=== PATIENT | female | born 1935 | race Caucasian/White ===

== ENCOUNTER 2018-05-12 15:01 | Inpatient (IN) ==
[2018-05-12] MEDS ORDERED: NS 1,000 ML IV ONE (16:32)
--- NOTE | 2018-05-12 16:48 | Diag Imaging Result Doc PS360 ---
EXAM: CHEST-1 VIEW 05/12/2018 HISTORY: sepsis TECHNIQUE: AP portable at 1635 COMMENT: The inspiration is less optimal than on 01/11/2018. There is a large calcified right tracheobronchial node. There is actually somewhat less platelike atelectasis over the right midlung field than on the previous study. IMPRESSION: No evidence of acute disease. Electronically signed by Moustapha Devlin 05/12/2018 4:46 PM
[2018-05-12 16:53] LABS: BASO# 0.01 X1000 (0.0-0.2); BASO% 0.1 % (0.0-0.8); EOS# 0.01 X1000 (0.0-0.7); EOS% 0.1 % (0.0-10.0); HEMATOCRIT 41.1 % (37.0-47.0); HEMOGLOBIN 13.8 g/dL (12.0-16.0); IMM GRAN# 0.02 X1000 (0.0-0.04); IMM GRAN% 0.2 % (0.0-0.5); LYMPH# 0.74 X1000 (1.2-3.4); LYMPH% 8.4 % (20.5-51.1); MCH 32.4 PG (27-31); MCHC 33.6 g/dL (33-37); MCV 96.5 FL (81-99); MONO# 0.36 X1000 (0.11-0.59); MONO% 4.1 % (1.7-9.3); NEUT# 7.65 X1000 (1.4-6.5); NEUT% 87.1 % (42.2-75.2); PLT 337 X1000 (130-400); RBC 4.26 XMIL (4.2-5.4); RDW 11.3 % (11.5-14.5); WBC 8.79 X1000 (4.8-10.8)
[2018-05-12 17:00] LABS: URINE SOURCE CATH
[2018-05-12 17:04] LABS: ALB/GLOB RATIO 2.1; ALBUMIN 4.8 g/dL (3.5-5.0); CREATININE 0.9 mg/dL (0.5-0.9); MAGNESIUM 1.6 mg/dL (1.5-2.7); PHOSPHORUS 3.6 mg/dL (2.7-4.5); POTASSIUM 4.1 mmol/L (3.5-5.1); TOTAL BILIRUBIN 0.27 mg/dL (0.20-1.00); TOTAL PROTEIN 7.1 g/dL (6.3-8.3)
[2018-05-12 17:11] LABS: INR 0.84; PROTIME 12.2 Seconds (11.0-16.0)
[2018-05-12 17:12] LABS: PTT 27.3 Seconds (22.3-41.8)
[2018-05-12 17:16] LABS: BILIRUBIN URINE NEGATIVE (NEGATIVE); BLOOD URINE MODERATE (NEGATIVE); COLOR ORANGE; GLUCOSE URINE NEGATIVE (NEGATIVE); KETONE URINE >150 mg/dL (NEGATIVE); LEUKOCYTES URINE LARGE (NEGATIVE); NITRITE URINE NEGATIVE (NEGATIVE); PH URINE 5.5; PROTEIN URINE 200 mg/dL (NEGATIVE); SP GRAVITY URINE 1.009; TURBIDITY URINE TURBID (CLEAR); UROBILINOGEN URINE NORMAL (NORMAL)
[2018-05-12 17:19] LABS: UR EPITHELIAL CELLS <10 /HPF (<10); URINE BACTERIA NEGATIVE /HPF; URINE RBC TNTC /HPF (<10); URINE WBC TNTC /HPF (<10)
[2018-05-12] MEDS ORDERED: ROCEPHIN 1 GM in NS 50 ML IV ONE (17:20)
[2018-05-12 17:29] LABS: URINE CASTS NONE SEEN; URINE CRYSTALS NONE SEEN; URINE YEAST NONE SEEN
--- NOTE | 2018-05-12 18:43 | PROVIDER DOCUMENTATION ---
This chart was entered by Magali Orr Scribe, acting as scribe for Whitney Astorga MD. HPI-General Adult - General Chief Complaint: Weakness Stated Complaint: WEAKNESS/UTI Time Seen by Provider: 05/12/18 15:31 Source: patient Allergies/Adverse Reactions: Patient Allergies Allergy/AdvReac Type Severity Reaction Status Date / Time meperidine HCl * AdvReac Intermediate NAUSEA/VOMI Verified 05/12/18 16:32 [From Demerol] TING morphine AdvReac Intermediate NAUSEA Verified 05/12/18 16:32 hydromorphone HCl * AdvReac FATIGUE Verified 05/12/18 16:32 [From Dilaudid] Home Medications: Home Medication List Medication Instructions Recorded Confirmed Last Taken Type Aspirin 81 mg PO DAILY 05/11/12 01/11/18 1 Day Ago History ~12/03/17 81mg Sucralfate [Carafate] 1 gm PO BID 05/11/12 01/11/18 1 Day Ago History ~12/03/17 1gm Metoprolol [Lopressor] 12.5 mg PO Q12H #60 tablet 05/14/12 01/11/18 1 Day Ago Rx ~12/03/17 12.5 PRAVAstatin [Pravachol] 10 mg PO DAILY #30 tablet 05/14/12 01/11/18 1 Day Ago Rx ~12/03/17 10mg Iron 27 mg PO DAILY 05/16/12 01/11/18 1 Day Ago History ~12/03/17 27mg Lorazepam [Ativan] 0.5 mg PO 4XDAY 05/16/12 01/11/18 1 Day Ago History ~12/03/17 0.5mg Multivitamins/Minerals [Centrum 1 each PO DAILY 05/16/12 01/11/18 1 Day Ago History Tablet] ~12/03/17 1 each Omega3/Dha/Epa/Fish Oil/Vit D3 1 each PO TID 05/16/12 01/11/18 1 Day Ago History [Fish Oil + Vitamin D-3 Softgel] ~12/03/17 300mg Hydrocodone/APAP 7.5 mg/325 mg 0.5 - 1 each PO Q6H PRN PRN #0 06/10/12 01/11/18 1 Day Ago Rx [[place]-7.5] tablet ~12/03/17 7.5mg Albuterol [Albuterol Neb] 2.5 mg INH Q4H PRN PRN 12/24/12 01/11/18 1 Day Ago History ~12/03/17 2.5mg Omeprazole [Prilosec] 40 mg PO DAILY 12/24/12 01/11/18 1 Day Ago History ~12/03/17 40mg Docusate Sodium [Colace] 100 mg PO DAILY 09/10/13 01/11/18 1 Day Ago History ~12/03/17 100mg Cholecalciferol (Vitamin D3) 2,000 units PO DAILY 08/22/14 01/11/18 1 Week Ago History [Vitamin D3] ~11/27/17 2000units Cyanocobalamin (Vitamin B-12) 1 tab PO DAILY 11/02/16 01/11/18 1 Day Ago History [Vitamin B12] ~12/03/17 1 tab Ibuprofen [Advil] 400 mg PO PRN PRN 11/02/16 01/11/18 3 Days Ago History ~12/01/17 1 cap Nutritional Supplement [Ensure] 1 dose PO PRN PRN 11/02/16 01/11/18 1 Day Ago History ~12/03/17 1 dose Acetaminophen [Tylenol] 650 mg PO Q6H PRN PRN #30 tab 12/07/17 01/11/18 Unknown Rx Famotidine [Pepcid] 20 mg PO QHS #50 tab 12/07/17 01/11/18 Unknown Rx Bupropion [Wellbutrin] 150 mg PO BID 01/11/18 01/11/18 Unknown History Diltiazem HCl [Cardizem Cd] 240 mg PO QAM 01/11/18 01/11/18 Unknown History Gabapentin [Neurontin] 300 mg PO QHS 01/11/18 01/11/18 Unknown History Levofloxacin [Levaquin] 500 mg PO DAILY #7 tab 01/13/18 Unknown Rx Nitrofurantoin [place]/Macrocryst 100 mg PO BID #10 cap 05/10/18 Unknown Rx [Macrobid] Ondansetron HCl [Zofran] 4 mg PO Q8H PRN #15 tab 05/10/18 Unknown Rx - History of Present Illness -Gen Adult Nature of Presenting Problems: 82 y/o female presents to ED with weakness and loss of appetite onset 2 days ago. Pt reports she was seen in ED and diagnosed with UTI 2 days ago. Pt is alert and oriented. Location of Pain/Injury: reports: generalized Pain Radiation: reports: no radiation Quality of Pain: reports: none Severity: reports: mild Onset/Duration: reports: 2 days ago Timing: reports: still present Context/Activities at Onset: reports: none Modifying Factors: improves with: nothing Associated Symptoms: reports: loss of appetite, weakness Similar Symptoms Previously?: No Recently seen or treated by another doctor?: Yes (ED 2 days ago) Review of Systems - Adult - REVIEW OF SYSTEMS - ADULT Constitutional: denies: chills, fever Eyes: reports: no symptoms reported Ears, Nose, Mouth & Throat: reports: no symptoms reported Cardiovascular: denies: chest pain, palpitations Respiratory: denies: cough, shortness of breath Gastrointestinal: reports: poor appetite. denies: abdominal pain, diarrhea, nausea, vomiting Genitourinary: reports: no symptoms reported Musculoskeletal: denies: back pain, joint pain Integumentary: reports: no symptoms reported Neurological: reports: other (weakness). denies: dizziness/vertigo, seizure Psychiatric: reports: no symptoms reported Endocrine: reports: no symptoms reported Hematologic/Lymphatic: reports: no symptoms reported Allergic/Immunologic: reports: no symptoms reported All Other Systems: Reviewed and Negative Past History - Adult - PAST MEDICAL HISTORY-ADULT Review of Records: reports: Old Records Reviewed, Nursing Assessment Review, Medications Reviewed Major Childhood Illnesses: reports: denies history Cardiovascular: reports: CAD, CHF, HTN, hyperlipidemia, [place] Respiratory: reports: denies history Gastrointestinal: reports: GERD Obstetrical/Gynecological: reports: denies history Genitourinary: reports: denies history Musculoskeletal: reports: arthritis (RA) Neurological: reports: CVA Psychiatric: reports: depression Endocrine/Immune: reports: denies history Other Conditions: reports: denies history, MRSA - PRIOR SURGERIES/PROCEDURES Surgical/Procedure History: reports: appendectomy, cholecystectomy, BTL, C- section, orthopedic (extremity) (L hip and L shoulder removed; bilateral UE and bilateral LE), joint replacement (hip, knee), back/neck (back) - IMMUNIZATION STATUS Childhood Immunizations: See Nurse Assessment Flu Vaccine: See Nurse Assessment - FAMILY HISTORY Family History: reviewed, not pertinent - SOCIAL HISTORY Smoking: quit greater than 1 year Substance Use: none/never Alcohol Use Frequency: never Living Situation: family Physical Exam-General - PHYSICAL EXAM-ADULT Initial Vital Signs Reviewed: Yes - CONSTITUTIONAL General Appearance: appears well, alert, no apparent distress - EYES Eyes: PERRL/EOMI, pink conjunctivae - HEAD, EARS, NOSE, MOUTH & THROAT HENMT: normocephalic/atraumatic, moist mucous membranes, normal ENT inspection - NECK Neck: non-tender, full range of motion - RESPIRATORY Respiratory: chest non-tender, lungs clear, normal breath sounds - CARDIOVASCULAR Cardiovascular: normal peripheral pulses, regular rate, rhythm - GASTROINTESTINAL (ABDOMEN) Abdominal Exam: normal bowel sounds, non tender, soft - MUSCULOSKELETAL Back Exam: normal inspection, no CVA tenderness Extremity: normal range of motion, non-tender, normal gait, other (generalized weakness; unable to move bilateral lower extremities) - SKIN Integumentary: normal color, warm/dry - NEUROLOGIC Neurologic: grossly normal - PSYCHIATRIC Psych/Mental Status: normal mood/affect, normal thought content, normal thought process, oriented x 3 Progress - PLAN OF CARE/RESULTS Progress/Plan/Lab Results: Vital Signs - 8 hr 05/12/18 15:32 05/12/18 15:49 05/12/18 15:50 Pulse Rate 113 H 113 H 113 H Respiratory Rate 23 23 22 Blood Pressure 140/101 140/101 O2 Sat by Pulse Oximetry 95 94 L 94 L 05/12/18 16:00 Pulse Rate 116 H Respiratory Rate 26 H Blood Pressure O2 Sat by Pulse Oximetry 97 Orders Category Date Time Status Cardiac Monitoring DIRECTED Care 05/12/18 16:21 Active IV Insertion ORDERED Care 05/12/18 16:21 Active Notify MD of + Sepsis Screen NOW Care 05/12/18 16:21 Active Notify Physician As Ordered Care 05/12/18 16:21 Active CHEST-1 VIEW [RAD] Stat Exams 05/12/18 16:21 Ordered BLOOD CULTURE [BLDCUL] Stat Lab 05/12/18 16:21 Uncollected CBC WITH DIFF [HEME] Stat Lab 05/12/18 16:16 Ordered CK PROFILE [SP CHEM] Stat Lab 05/12/18 16:21 Uncollected COMPREHENSIVE METABOLIC PANEL [CHEM] Stat Lab 05/12/18 16:16 Ordered LACTATE, PLASMA [CHEM] Q3H Lab 05/12/18 16:30 Uncollected LACTATE, PLASMA [CHEM] Q3H Lab 05/12/18 19:30 Uncollected LACTATE, PLASMA [CHEM] Q3H Lab 05/12/18 22:30 Uncollected MAGNESIUM [CHEM] Stat Lab 05/12/18 16:16 Ordered PHOSPHORUS [CHEM] Stat Lab 05/12/18 16:16 Ordered PROTIME WITH INR [COAG] Stat Lab 05/12/18 16:21 Uncollected PTT [COAG] Stat Lab 05/12/18 16:21 Uncollected TROPONIN T Stat Lab 05/12/18 16:21 Uncollected URINALYSIS W/POSS RFLX CULT [URINALYSIS] Stat Lab 05/12/18 16:21 Uncollected Oxygen Device Stat Oth 05/12/18 16:21 Active Laboratory Tests 05/12/18 05/12/18 05/12/18 16:15 16:15 16:15 WBC 8.79 RBC 4.26 Hgb 13.8 Hct 41.1 MCV 96.5 MCH 32.4 H MCHC 33.6 RDW Std Deviation 11.3 L Plt Count 337 MPV 9.0 Immature Gran % (Auto) 0.2 Neut % (Auto) 87.1 H Lymph % (Auto) 8.4 L Wilkinson % (Auto) 4.1 Eos % (Auto) 0.1 Baso % (Auto) 0.1 Immature Gran # (Auto) 0.02 Neut # (Auto) 7.65 H Lymph # (Auto) 0.74 L [place] # (Auto) 0.36 Eos # (Auto) 0.01 Baso # (Auto) 0.01 PT 12.2 INR 0.84 PTT (Actin FS) 27.3 Sodium 131 L Potassium 4.1 D Chloride 92 L Carbon Dioxide 16 L Anion Gap 23 BUN 23 H D Creatinine 0.9 Estimated GFR/1.73 m2 60 BUN/Creatinine Ratio 26 Glucose 123 H D Calculated Osmolality 268 Calcium 10.0 Phosphorus 3.6 Magnesium 1.6 Total Bilirubin 0.27 AST 28 ALT 15 Troponin T Total Protein 7.1 Albumin 4.8 Globulin 2.3 Albumin/Globulin Ratio 2.1 Plasma Lactate Urine Source 05/12/18 05/12/18 05/12/18 16:15 16:15 17:00 WBC RBC Hgb Hct MCV MCH MCHC RDW Std Deviation Plt Count MPV Immature Gran % (Auto) Neut % (Auto) Lymph % (Auto) Wil[place] % (Auto) Eos % (Auto) Baso % (Auto) Immature Gran # (Auto) Neut # (Auto) Lymph # (Auto) [place] # (Auto) Eos # (Auto) Baso # (Auto) PT INR PTT (Actin FS) Sodium Potassium Chloride Carbon Dioxide Anion Gap BUN Creatinine Estimated GFR/1.73 m2 BUN/Creatinine Ratio Glucose Calculated Osmolality Calcium Phosphorus Magnesium Total Bilirubin AST ALT Troponin T 0.013 Total Protein Albumin Globulin Albumin/Globulin Ratio Plasma Lactate 1.1 Urine Source CATH Result Diagrams: 05/12/18 16:15 05/12/18 16:15 - EKG 1 Time of EKG reading by physician:: 16:17 EKG Read and Signed by:: Elizabeth Najera EKG Interpretation (*Must complete 3 of following elements*): Abnormal Rate: 112 Rhythm: Sinus tach w/ occasional PVCs [place]: normal QRS: PVC's, other (possible L atrial enlargement) [place] Interval: normal ST Wave: non-specific ST changes - XRAY 1 XRAY Study: Chest Impression: Normal (COMMENT: The inspiration is less optimal than on 2017. There is a large calcified right tracheobronchial node. There is actually somewhat less platelike atelectasis over the right midlung field than on the previous study. IMPRESSION: No evidence of acute disease. Electronically signed by Moustapha Devlin 05/12/2018 4:46 PM) - CONSULTS/PCP/HOSPITALIST Notification #1 *Consult/PCP/Hospitalist*: Kassy Time Discussed: 18:43 Consult Disposition: Admit Departure - Departure Date of Disposition Decision: 05/12/18 Time of Disposition Decision: 18:41 DIAGNOSIS: Generalized weakness, Sepsis, Chronic hyponatremia Disposition: ADMITTED INPATIENT 09 Certified Medical Emergency: Emergent Condition: Stable Additional Freetext Instructions: ED Follow Up Instructions: You have been treated by a care provider in the Emergency Department. These instructions are being provided to you so you can have an understanding of how to care for yourself upon discharge. Upon discharge from the Emergency Department, you are responsible for making arrangements for follow-up care by a physician of your choice. Take all prescribed medications as directed. Return to the Emergency Department immediately for any new or worsening symptoms. You may call the Physician Referral phone number at [phone] to obtain a list of Physicians who are taking new patients. Referrals and Follow-Ups: Jose De Jesus Mccormack MD [Primary Care Provider] - Call for Appoint. 1-2days - Critical Care Note This patient required my direct & personal management of CC.: No Attestation - Physician/ CHRIS Attestation Patient care was provided by Advanced Practice Provider:: No The physician spent face to face time with patient:: Yes Advanced Practice Provider documentation review:: Supervising physician onsite and consulted in the evaluation and care of this patient. The physician did have a face to face encounter with the patient. This chart was documented by the indicated scribe, (Magali Orr, [place]) and accurately reflects the services I performed and decisions made by me, Whitney Astorga MD, as attested by the provider's signature.
[2018-05-12] MEDS ORDERED: ZOFRAN IV ONE (19:06)
[2018-05-12] MEDS ORDERED: D5 NS 1,000 ML IV ONE (20:07)
[2018-05-12] MEDS ORDERED: NEURONTIN PO SCH (21:00)
[2018-05-12] MEDS: PROTONIX IV SCH (21:00)
[2018-05-12] MEDS: HEPARIN SUBQ SCH (21:05)
[2018-05-12] MEDS: ATIVAN PO SCH (21:05)
[2018-05-12] MEDS: TYLENOL PO PRN (21:05)
[2018-05-12] MEDS: CARAFATE PO SCH (23:34)
[2018-05-13] MEDS: LOPRESSOR PO SCH ×3 (01:50→22:26)
--- NOTE | 2018-05-13 03:17 | HISTORY AND PHYSICAL ---
CHIEF COMPLAINT: Generalized weakness, possible urinary tract infection. No family members at the bedside. HISTORY OF PRESENT ILLNESS: An 82-year-old female, who is bed-bound secondary to multiple orthopedic problems, with a problem at the hip joints and knees. Past medical history of coronary artery disease, spinal stenosis, with chronic pain, hypertension, previous CVA, depression. Apparently, she is living with the , but nobody is at the bedside at this moment. The patient is a poor historian. She is not quite sure why she is in the emergency department, but she states that she has some burning sensation while she is urinating, generalized weakness, and poor appetite. She looks dehydrated, and she has been getting fluids through her IV. She denies any chest pain or shortness of breath. No hematemesis, no hematochezia or melena. As per the patient, she is not having nausea or vomiting, but like I said, she has dysuria. Apparently, she came to the emergency department a couple days ago, and she was diagnosed with a urinary tract infection. The urine culture from 05/10/2018 is negative. I will get a new urine culture, and also a blood culture. In the emergency department, she was found to be tachycardic, mostly in the 110s. Laboratory showed hyponatremia, hypochloremia, elevated anion gap, and elevated a little bit of the BUN, but creatinine within normal limits. Urinalysis showed WBCs and RBCs too numerous to count. No nitrates or bacteria. This patient received a dose of ceftriaxone, and also she received some fluids. Since this patient has been having multiple urinary tract infections, I will ask for a renal ultrasound to rule out any other problems or obstruction. I will hydrate the patient, and I will continue with ceftriaxone. This patient will be transferred to the medical floor for treatment. REVIEW OF SYSTEMS: She denies nausea, vomiting, diarrhea, constipation. No chest pain. No shortness of breath. All of this is associated with some headache and weakness. All the 14- points of the review of systems were checked. All of them negative, except as per HPI. PAST MEDICAL HISTORY: Coronary artery disease, spinal stenosis with chronic pain, hypertension, CVA, depression, rheumatoid arthritis, GERD, dyslipidemia. PAST SURGICAL HISTORY: Appendectomy, cholecystectomy, left shoulder repair, right total hip replacement in 2003, left knee full replacement in 2000, right BKA in 1998, , right hip revision, shoulder replacement, left hip replacement, left hip prosthesis removal. FAMILY HISTORY: Mother with rheumatoid arthritis. SOCIAL HISTORY: The patient lives with the at home. I think the is the caregiver. No tobacco, drugs, or alcohol. HOME MEDICATIONS: I do not have the list of her medications at this moment, because she is by herself, but she was discharged from this hospital on 01/13/2018 with the following medications: 1. Neurontin 200 mg p.o. at bedtime. 2. Albuterol nebulizer 2.5 mg inhaler q.4 hours as needed. 3. Aspirin 81 mg p.o. daily. 4. Wellbutrin 150 mg p.o. b.i.d. 5. Vitamin D3 2000 units p.o. daily. 6. Vitamin B12 25 mcg p.o. daily. 7. Cardizem CD 240 mg p.o. q.a.m. 8. Colace 100 mg p.o. daily. 9. Advil 400 mg p.o. p.r.n. 10. Iron 27 mg p.o. daily. 11. Ativan 0.5 mg p.o. 4 times a day. 12. Centrum 1 tablet p.o. daily. 13. Ensure pudding 1 dose p.o. p.r.n. 14. Fish oil plus vitamin D3 soft gel 1 tablet p.o. t.i.d. 15. Prilosec 40 mg p.o. daily. 16. Carafate 1 g p.o. b.i.d. 17. Pepcid 20 mg p.o. at bedtime. 18. Tylenol 650 mg p.o. q.6 hours as needed. 19. [place] 7.5 mg half a tablet q.6 hours as needed. 20. Levaquin 500 mg p.o. daily for 7 days. 21. Lopressor 12.5 mg p.o. q.12 hours. 22. Pravachol 10 mg p.o. daily. Like I said, she has been discharged with these medications in 01/2018. PHYSICAL EXAMINATION: VITAL SIGNS: Pulse 114, respiratory rate 19, blood pressure 155/100, oxygen saturation 94% on room air. HEENT: Head normocephalic. No trauma. PERRLA. NECK: Supple. No JVD. No masses. Central trachea. CHEST: Clear to auscultation. No wheezing. No rales. ABDOMEN: Soft. Some tenderness to palpation around the periumbilical area and suprapubic area. EXTREMITIES: There is no edema. No clubbing. No cyanosis. She has some deformity at the level of the knees, and some contracture, with some decrease of the muscle mass. NEUROLOGICAL: This patient is alert. She is oriented x2. She knows she is in the hospital. She does not remember which one. She is oriented to person. She is not oriented to time. LABORATORY STUDIES: WBC 8.7, hemoglobin 13.8, hematocrit 41.1, platelets 337,000. Sodium 131, potassium 4.1, chloride 92, bicarbonate 16, BUN 23, creatinine 0.9, glucose 123, calcium 10, troponin 0.01. ASSESSMENT AND PLAN: 1. Generalized weakness, with possible confusion. I do not have any family members at the bedside to corroborate if this patient has dementia. I did not see any past medical history of dementia in her previous discharge. She is a little bit confused, but just to time. She knows she is in a hospital, but she does not remember the name of the hospital, but she knows she is in [place]. Probably, this is related to dehydration and urinary tract infection. We will continue with IV fluids and antibiotics for now. 2. Possible urinary tract infection. She came in 2 days ago, and the urine culture has been negative. I will continue with ceftriaxone, since she has white blood cells and blood, but the nitrate and bacteria are negative. I requested a new culture. I will monitor. 3. Hyponatremia. Continue with IV fluids. We will check the blood sodium in the morning. 4. History of coronary artery disease. Aware. Continue home medications. 5. Spinal stenosis, with chronic pain. Continue with the same management. 6. Hypertension. Continue with home medications. I do believe she is still taking the medications that she was using in January 2018. 7. Depression. Continue with the same management. 8. Gastroesophageal reflux disease. Continue with Protonix. 9. Dyslipidemia. We will continue with home medications when appropriate. 10. Deep vein thrombosis prophylaxis with heparin. 11. Gastrointestinal prophylaxis with Protonix. cc: Jayesh Cabral MD
[2018-05-13] MEDS: NORCO-7.5 PO PRN ×2 (04:22→13:12)
[2018-05-13] MEDS: WELLBUTRIN SR PO SCH ×2 (04:32→09:23)
[2018-05-13 06:34] LABS: BASO# 0.01 X1000 (0.0-0.2); BASO% 0.2 % (0.0-0.8); HEMOGLOBIN 12.7 g/dL (12.0-16.0); IMM GRAN# 0.02 X1000 (0.0-0.04); IMM GRAN% 0.3 % (0.0-0.5); LYMPH# 1.04 X1000 (1.2-3.4); LYMPH% 16.5 % (20.5-51.1); MCH 32.2 PG (27-31); MCHC 33.4 g/dL (33-37); MCV 96.2 FL (81-99); MONO# 0.55 X1000 (0.11-0.59); MONO% 8.7 % (1.7-9.3); MPV 8.6 FL (7.4-10.4); NEUT# 4.67 X1000 (1.4-6.5); NEUT% 74.3 % (42.2-75.2); PLT 314 X1000 (130-400); RBC 3.95 XMIL (4.2-5.4); RDW 11.1 % (11.5-14.5); WBC 6.29 X1000 (4.8-10.8)
[2018-05-13 07:30] LABS: AGAP 16; ALB/GLOB RATIO 1.8; ALBUMIN 4.2 g/dL (3.5-5.0); ALKALINE PHOSPHATASE 74 U/L (32-104); BUN 17 mg/dL (8-22); CHLORIDE 99 mmol/L (98-107); COSMO 272; CREATININE 0.7 mg/dL (0.5-0.9); ESTIMATED GFR > 60; GLUCOSE 179 mg/dL (70-104); GOT 26 U/L (10-30); GPT 14 U/L (10-36); MAGNESIUM 1.5 mg/dL (1.5-2.7); POTASSIUM 3.4 mmol/L (3.5-5.1); SODIUM 133 mmol/L (136-145); TCO2 18 mmol/L (25-35); TOTAL BILIRUBIN 0.28 mg/dL (0.20-1.00); TOTAL PROTEIN 6.5 g/dL (6.3-8.3)
--- NOTE | 2018-05-13 08:04 | Diag Imaging Result Doc PS360 ---
US RENAL 2 (RETROPER) COMPLETE - 05/13/2018 INDICATION: Recurrent UTI TECHNIQUE: COMPARISON: CT from 09/09/2013 FINDINGS: There is a stable cyst in the right renal midpole measuring about 2.8 cm. The left kidney is severely atrophic and hyperechoic. This is compatible with severe chronic medical renal disease. The left kidney measures 7.2 x 2.7 cm. The right kidney measures 10.9 x 2.9 x 5.2 cm. No hydronephrosis. IMPRESSION: 1. Severely atrophic left kidney. 2. Simple appearing right renal cyst. No acute abnormality. Electronically signed by Alexandre Ivey 05/13/2018 8:02 AM
--- NOTE | 2018-05-13 08:26 | EKG Report ---
Test Performed on : 05/12/2018 4:17:46 PM Test Reason : WEAKNESS Blood Pressure : / mmHG Vent. Rate : 112 BPM Atrial Rate : 112 BPM P-R Int : 162 ms QRS Dur : 084 ms QT Int : 324 ms P-R-T Axes : 052 -23 057 degrees QTc Int : 442 ms Sinus tachycardia. with occasional premature ventricular complexes. Possible Left atrial enlargement Nonspecific ST abnormality Abnormal ECG When compared with ECG of 10-MAY-2018 18:12, (Unconfirmed) premature ventricular complexes. are now present Unconfirmed Result
[2018-05-13] MEDS: COLACE PO SCH (09:23)
[2018-05-13] MEDS: CARAFATE PO SCH ×2 (09:24→22:26)
[2018-05-13] MEDS: CENTRUM TABLET PO SCH (09:24)
[2018-05-13] MEDS: ATIVAN PO SCH ×4 (09:24→22:24)
[2018-05-13] MEDS: CARDIZEM CD PO SCH (09:24)
[2018-05-13] MEDS: ASPIRIN PO SCH (09:24)
[2018-05-13] MEDS: HEPARIN SUBQ SCH ×2 (09:24→22:27)
[2018-05-13] MEDS ORDERED: BLISTEX MEDICATED BERRY LIP BALM TOP PRN (11:09)
--- NOTE | 2018-05-13 11:57 | PROGRESS NOTE ---
DATE: 05/13/2018 She is followed by Dr. Jose De Jesus Mccormack. SUBJECTIVE: She presented with generalized weakness, possible urinary tract infection. No family members are at bedside. Apparently they had brought her in earlier in the week and felt she had urinary tract infection. Just very weak and not eating. She is bed-bound secondary to her left shoulder and right hip. She does not work, and she had a problem with her knees as well. So, she has been bed-bound for couple of years. Past medical history of coronary artery disease, spinal stenosis, chronic pain, hypertension, previous CVA, depression. SOCIAL HISTORY: Apparently, she is living with her , and her daughter states she is still pretty confused and still not eating very well and seems to be very weak compared to her baseline. PAST SURGICAL HISTORY: Status post appendectomy, cholecystectomy, left shoulder repair, right total hip replacement in 2003, left knee full replaced in 2000, right [id number] amputation in 1998. section right hip. Shoulder replacement. Left hip replacement. Left hip prosthesis removal . PHYSICAL EXAMINATION: General: Today, she is awake, and she seems pleasant. I think she is oriented to person. She does not know where she is or what date it is. Vital Signs: Temperature 98.0,, pulse 89, respirations 20, blood pressure 129/86. Pupils are equal and round. Lungs are clear in all lung [place]. Cardiovascular: Regular rhythm and rate without murmur or S3. Abdomen is soft. Skin is warm and dry. LABORATORY DATA: I reviewed her lab yesterday. Renal ultrasound done yesterday showed severe 8 atrophic left kidney. Simple appearing right renal cyst. Really no acute abnormality. Chest x- ray from yesterday: No evidence of acute disease. ASSESSMENT AND PLAN: 1. Generalized weakness, confusion, and some delirium. I suspect this is due to multiple factors, underlying dementia, some weakness, combination of medications. Recently, I think they went up on her Neurontin, so I think I will back down on her Neurontin to start with and may need to back down on some other medications. She is on [place]. She is on Wellbutrin. 2. Urinary tract infection. She came in a couple days before this, so we continued the ceftriaxone. We await cultures. Urine culture and blood culture right now are still pending. 3. History of coronary artery disease. No sign of active ischemia. 4. Spinal stenosis and chronic pain. 5. Hypertension. Watch her blood pressure. 6. Depression. Continue same medications. 7. History of gastroesophageal reflux; on Protonix. We will review her orders. She is on 1. Neurontin 300 mg at bedtime. 2. Aspirin 81 mg a day. 3. Wellbutrin SR 150 mg twice a day. 4. Cardizem CD 240 mg a day. 5. Colace 100 mg daily. 6. Ativan 0.5 mg p.o. 4 times a day. 7. Lopressor 12.5 mg q.12 hours. 8. Multivitamin. 9. Protonix 40 mg a day. 10. Pravachol 10 mg every evening. 11. Ceftriaxone 1 g daily. 12. Getting normal saline at 75 mL an hour. I am going to stop her Neurontin, and I am going to decrease her Wellbutrin down to just 150 once a day. cc: Morris Howard MD
[2018-05-13] MEDS: ROCEPHIN 1 GM in NS 50 ML IV SCH (17:47)
[2018-05-13] MEDS: TYLENOL PO PRN (17:47)
[2018-05-13] MEDS ORDERED: VANCOMYCIN 1 GM/NS 1 GM/250 ML IVPB IV ONE (21:57)
[2018-05-13] MEDS: PRAVACHOL PO SCH (22:26)
[2018-05-13] MEDS: SODIUM CHLORIDE 0.9% INJ SCH (22:27)
[2018-05-13] MEDS: PROTONIX IV SCH (22:27)
[2018-05-14] MEDS: NORCO-7.5 PO PRN ×3 (01:40→19:39)
[2018-05-14] MEDS: HEPARIN SUBQ SCH ×2 (08:45→22:23)
[2018-05-14] MEDS: CARDIZEM CD PO SCH (10:42)
[2018-05-14] MEDS: COLACE PO SCH (10:42)
[2018-05-14] MEDS: ASPIRIN PO SCH (10:43)
[2018-05-14] MEDS: CARAFATE PO SCH ×2 (10:43→22:23)
[2018-05-14] MEDS: WELLBUTRIN SR PO SCH (10:43)
[2018-05-14] MEDS: ATIVAN PO SCH ×4 (10:43→22:23)
[2018-05-14] MEDS: LOPRESSOR PO SCH ×2 (10:44→22:24)
[2018-05-14] MEDS: CENTRUM TABLET PO SCH (10:44)
--- NOTE | 2018-05-14 13:33 | PROGRESS NOTE ---
DATE: 05/14/2018 SUBJECTIVE: The patient is feeling better, and feels stronger. She remains afebrile. OBJECTIVE: Temperature 98.7 degrees, pulse 78, respirations 17, blood pressure 122/65. Pupils are equal and round.Lungs: Clear in all lung [place]. Cardiovascular: Regular rate without murmur or S3. Abdomen: Soft. Skin: Warm, dry. ASSESSMENT AND PLAN: 1. Generalized weakness confusion and some delirium. Doing better. She has some underlying dementia. She seems to be more awake and alert. We have cut back on some of her medications. Seems to be waking up. 2. Urinary tract infection. Continue her ceftriaxone. Await her urine culture. No growth. She did have one coagulase-negative Staph coccus and one of her blood cultures that very well could be contaminant. 3. History of coronary artery disease. 4. Spinal stenosis with chronic pain. 5. Hypertension. 6. Depression. 7. Gastroesophageal reflux disease. 8. We will see how we do with physical therapy. Continue present regimen. Right now, she is on ceftriaxone 1 g daily. She did want us to start her on something for her bowels so we will make sure we are on some MiraLAX. cc: Morris Howard MD
[2018-05-14] MEDS: MIRALAX PO SCH (13:46)
[2018-05-14] MEDS: TYLENOL PO PRN (14:30)
[2018-05-14] MEDS: ROCEPHIN 1 GM in NS 50 ML IV SCH (17:35)
[2018-05-14] MEDS: PRAVACHOL PO SCH (22:23)
[2018-05-14] MEDS: PROTONIX IV SCH (22:24)
[2018-05-14] MEDS: SODIUM CHLORIDE 0.9% INJ SCH (22:24)
[2018-05-15] MEDS: HEPARIN SUBQ SCH ×2 (09:34→21:41)
[2018-05-15] MEDS: ASPIRIN PO SCH (09:35)
[2018-05-15] MEDS: TYLENOL PO PRN (09:35)
[2018-05-15] MEDS: CARDIZEM CD PO SCH (09:35)
[2018-05-15] MEDS: COLACE PO SCH ×2 (09:35→21:40)
[2018-05-15] MEDS: CARAFATE PO SCH ×2 (09:35→21:39)
[2018-05-15] MEDS: WELLBUTRIN SR PO SCH (09:35)
[2018-05-15] MEDS: ATIVAN PO SCH ×4 (09:39→21:40)
[2018-05-15] MEDS: LOPRESSOR PO SCH ×2 (09:40→21:39)
[2018-05-15] MEDS: CENTRUM TABLET PO SCH (11:47)
[2018-05-15] MEDS: MIRALAX PO SCH (11:48)
--- NOTE | 2018-05-15 13:52 | PROGRESS NOTE ---
DATE: 05/15/2018 SUBJECTIVE: She has eaten a little bit of her lunch. She says she is feeling better and wants to go home. OBJECTIVE: Temperature 98.4, pulse 75, respirations 24. Blood pressure 140/72. Her pupils are equal. No distended neck veins. Lungs are clear in all lung dutton. Cardiovascular: Regular rhythm and rate without murmur or S3. Abdomen is soft. Skin is warm and dry. Urine output was 1100 mL. ASSESSMENT AND PLAN: 1. Generalized weakness, confusion, some delirium. Doing much better. She is more awake and alert. We have cut back on some of her medications she was taking at home, and I think this has helped. 2. Urinary tract infection. Continue ceftriaxone. Her micro studies: There was one blood culture that had a coagulase-negative Staphylococcus which I believe is contaminant. Urine culture did not grow anything. 3. History of coronary artery disease. 4. Spinal stenosis. Chronic pain. 5. Hypertension. 6. Depression. 7. Gastroesophageal reflux disease. 8. Continue physical therapy. 9. She is taking MiraLAX. They would like us to try to get her back on her lactulose and see if this will help. Review of her recent lab. I do not see any issues, so I will put her back on her lactulose, and we will see what the discharge plans will be. cc: Morris Howard MD
[2018-05-15] MEDS: NORCO-7.5 PO PRN ×2 (16:09→21:38)
[2018-05-15] MEDS: ROCEPHIN 1 GM in NS 50 ML IV SCH (18:16)
[2018-05-15] MEDS: PRAVACHOL PO SCH (21:38)
[2018-05-15] MEDS: PROTONIX IV SCH (21:39)
[2018-05-15] MEDS: SODIUM CHLORIDE 0.9% INJ SCH (21:39)
[2018-05-15] MEDS: LACTULOSE PO SCH (21:39)
[2018-05-16] MEDS: TYLENOL PO PRN (01:48)
[2018-05-16] MEDS: ATIVAN PO SCH ×2 (08:31→13:37)
[2018-05-16] MEDS: LOPRESSOR PO SCH (08:31)
[2018-05-16] MEDS: LACTULOSE PO SCH (08:31)
[2018-05-16] MEDS: NORCO-7.5 PO PRN (08:31)
[2018-05-16] MEDS: CARDIZEM CD PO SCH (08:32)
[2018-05-16] MEDS: COLACE PO SCH ×2 (08:32→13:37)
[2018-05-16] MEDS: ASPIRIN PO SCH (08:32)
[2018-05-16] MEDS: CARAFATE PO SCH (08:32)
[2018-05-16] MEDS: HEPARIN SUBQ SCH (08:32)
[2018-05-16] MEDS: WELLBUTRIN SR PO SCH (08:32)
[2018-05-16] MEDS: MIRALAX PO SCH (11:14)
[2018-05-16] MEDS: CENTRUM TABLET PO SCH (11:14)
[2018-05-16 11:41] VITALS: BP 125/72
--- NOTE | 2018-05-16 12:58 | DISCHARGE SUMMARY ---
ADMISSION DATE: 05/12/2018 DISCHARGE DATE: 05/16/2018 HISTORY OF PRESENT ILLNESS: She is followed by Dr. Jose De Jesus Mccormack. This is an 82-year-old, who came in with general weakness, possible urinary tract infection, just very lethargic and really very weak. She has multiple orthopedic problems with her hip joints and knees. Past medical history of coronary artery disease, spinal stenosis, chronic pain syndrome, hypertension, previous CVA, depression. Living with her . The patient was a poor historian at the time of presentation. She was not sure why she was in the emergency department. She had some burning sensation when urinating, general weakness, and poor appetite. Denied chest pain. No focal new neurologic changes. No sign of tonic-clonic activity. She was not having nausea or vomiting but she did complain of some dysuria. PAST MEDICAL HISTORY: 1. Coronary artery disease. 2. Spinal stenosis. 3. Chronic pain syndrome. 4. Hypertension. 5. CVA. 6. Depression. 7. Rheumatoid arthritis. 8. Gastroesophageal reflux. 9. Dyslipidemia. PAST SURGICAL HISTORY: 1. Status post appendectomy. 2. Cholecystectomy. 3. Left shoulder repair. 4. Right total hip replacement 2003. 5. Left knee full replacement 2000. 6. Right below the knee amputation 1998. 7. She had section. 8. Right hip revision. 9. Shoulder replacement. 10. Left hip replacement. 11. Left hip prosthesis. ADMISSION DIAGNOSIS: 1. General weakness. 2. Global encephalopathy with lethargy with underlying dementia. 3. Multi-infarct dementia. HOSPITAL COURSE: She was found to have urinary tract infection and I did change up some of her medications. She seemed to wake up and respond do fairly well. Urinary tract infection. No growth from the urine. We did have 1 of 2 cultures with coagulase-negative Staphylococcus. I felt it was a contaminant. She continued to improve. She was asking to go home. Family felt she could go home. I will discharge her home. She can take Tylenol 650 mg q.6 h. p.r.n., aspirin 81 mg a day. I cut down her Wellbutrin to just 150 mg daily. I will give her some Levaquin 500 mg a day for another 5 days. Cardizem CD 240 mg q.a.m., Colace 100 mg a day, [place] 7.5 mg 1 q.6 h. p.r.n. which I think we can stop, lactulose 30 mL p.o. b.i.d., Ativan 0.5 mg which she gets 4 times a day, Lopressor 12.5 mg q.12 h. We can stop her Protonix. MiraLAX 17 g p.o. daily, Pravachol 10 mg a day, Carafate 1 g b.i.d. She will follow up with Dr. Jose De Jesus Mccormack in couple weeks and I think they have home health so we will send her home with some home health. cc: Morris Howard MD
== END 2018-05-16 15:09 | disposition home health service (06) | DRG 690 ==
LOC: SUPCPDRO → ED 15:01 → SUATTDRO 21:55 → EDIPHOLD 21:55 → 4N 22:45
PROVIDERS: ATTEND Emergency Medicine
CPT/HCPCS: 51701; 71010; 71045; 76770; 80053; 81001; 82550; 83605; 83735; 84100; 84443; 84484; 85025; 85610; 85730; 87040; 87088; 93005; 96361; 96365; 96366; 96367; 96372; 96374; 96375; 97110; 97162; 97530; 99284; 99285; A9270; C9113; J0696; J1644; J2405; J3370; J7030; J7040; J7042; P9612; S0164

== ENCOUNTER 2018-07-16 12:21 | Inpatient (IN) ==
--- NOTE | 2018-07-16 14:49 | PROVIDER DOCUMENTATION ---
HPI-Abdominal Pain/GI Problem - General Chief Complaint: Rectal Bleeding Stated Complaint: gi bleed Time Seen by Provider: 07/16/18 14:21 Source: patient, family (pt daughter) Allergies/Adverse Reactions: Patient Allergies Allergy/AdvReac Type Severity Reaction Status Date / Time meperidine HCl * AdvReac Intermediate NAUSEA/VOMI Verified 05/12/18 16:32 [From Demerol] TING morphine AdvReac Intermediate NAUSEA Verified 05/12/18 16:32 hydromorphone HCl * AdvReac FATIGUE Verified 05/12/18 16:32 [From Dilaudid] Home Medications: Home Medication List Medication Instructions Recorded Confirmed Last Taken Type Aspirin 81 mg PO DAILY 05/11/12 01/11/18 1 Day Ago History ~12/03/17 81mg Sucralfate [Carafate] 1 gm PO BID 05/11/12 01/11/18 1 Day Ago History ~12/03/17 1gm Metoprolol [Lopressor] 12.5 mg PO Q12H #60 tablet 05/14/12 01/11/18 1 Day Ago Rx ~12/03/17 12.5 PRAVAstatin [Pravachol] 10 mg PO DAILY #30 tablet 05/14/12 01/11/18 1 Day Ago Rx ~12/03/17 10mg Lorazepam [Ativan] 0.5 mg PO 4XDAY 05/16/12 01/11/18 1 Day Ago History ~12/03/17 0.5mg Multivitamins/Minerals [Centrum 1 each PO DAILY 05/16/12 01/11/18 1 Day Ago History Tablet] ~12/03/17 1 each Omega3/Dha/Epa/Fish Oil/Vit D3 1 each PO TID 05/16/12 01/11/18 1 Day Ago History [Fish Oil + Vitamin D-3 Softgel] ~12/03/17 300mg Albuterol [Albuterol Neb] 2.5 mg INH Q4H PRN PRN 12/24/12 01/11/18 1 Day Ago History ~12/03/17 2.5mg Omeprazole [Prilosec] 40 mg PO DAILY 12/24/12 01/11/18 1 Day Ago History ~12/03/17 40mg Cholecalciferol (Vitamin D3) 2,000 units PO DAILY 08/22/14 01/11/18 1 Week Ago History [Vitamin D3] ~11/27/17 2000units Cyanocobalamin (Vitamin B-12) 1 tab PO DAILY 11/02/16 01/11/18 1 Day Ago History [Vitamin B12] ~12/03/17 1 tab Nutritional Supplement [Ensure] 1 dose PO PRN PRN 11/02/16 01/11/18 1 Day Ago History ~12/03/17 1 dose Acetaminophen [Tylenol] 650 mg PO Q6H PRN PRN #30 tab 12/07/17 01/11/18 Unknown Rx Bupropion [Wellbutrin] 150 mg PO BID 01/11/18 01/11/18 Unknown History Diltiazem HCl [Cardizem Cd] 240 mg PO QAM 01/11/18 01/11/18 Unknown History Ondansetron HCl [Zofran] 4 mg PO Q8H PRN #15 tab 05/10/18 Unknown Rx Acetaminophen [Tylenol] 650 mg PO Q6H PRN PRN tablet 05/16/18 Unknown Rx Docusate Sodium [Colace] 100 mg PO BID 30 Days #60 cap 05/16/18 Unknown Rx Lactulose 30 ml PO BID 30 Days #60 udc 05/16/18 Unknown Rx Levofloxacin [Levaquin] 500 mg PO DAILY 7 Days #7 tab 05/16/18 Unknown Rx Polyethylene Glycol 3350 [Miralax] 17 gm PO DAILY 30 Days #1 powder, 05/16/18 Unknown Rx packet - History of Present Illness-ABD Nature of Presenting Problems: 82 yof bed bound presents to ed for Possible GI Bleed. Daughter reports that she noticed bright red blood in pt diaper. Pt seen Dr. Peres for GI and [facility] as pcp. Reports takes Miralax daily to regulate BM. Denies abd pain, n,v. Hx of haemorrhoids. Abdominal Pain Onset Location: denies: epigastric, periumbilical, suprapubic Pain Radiation: reports: no radiation Quality of Pain: reports: none Severity in ED: reports: mild Onset/Duration: reports: this morning Timing: reports: still present Activities at Onset: reports: none Associated Symptoms: reports: denies symptoms Last BM: unsure Dark Stools Present?: reports: bright red blood Rectal Bleeding: reports: bright red blood on paper Review of Systems - Adult - REVIEW OF SYSTEMS - ADULT Constitutional: denies: chills, fever, fatique Eyes: reports: no symptoms reported Ears, Nose, Mouth & Throat: reports: no symptoms reported Cardiovascular: reports: no symptoms reported Respiratory: denies: chronic cough, excessive sputum production, wheezing Gastrointestinal: reports: see HPI, rectal bleeding. denies: abdominal pain, hematemesis, constipation, diarrhea, difficulty swallowing, frequent heartburn, nausea, poor appetite, vomiting Genitourinary: denies: dysuria, discharge, frequency, flank pain, frequent UTI's, hematuria, hesitency, incontinence, urinary retention, urgency Musculoskeletal: denies: bone pain, back pain, frequent leg cramps, joint pain, joint swelling, muscle aches, muscle weakness Integumentary: reports: no symptoms reported Neurological: reports: no symptoms reported Psychiatric: reports: no symptoms reported Endocrine: reports: no symptoms reported Hematologic/Lymphatic: reports: no symptoms reported Allergic/Immunologic: reports: no symptoms reported All Other Systems: Reviewed and Negative Past History - Adult - PAST MEDICAL HISTORY-ADULT Review of Records: reports: Nursing Assessment Review, Medications Reviewed Major Childhood Illnesses: reports: denies history Cardiovascular: reports: CAD, CHF, HTN, hyperlipidemia, RI Respiratory: reports: denies history Gastrointestinal: reports: GERD Obstetrical/Gynecological: reports: denies history Genitourinary: reports: denies history Musculoskeletal: reports: arthritis (RA) Neurological: reports: CVA Psychiatric: reports: depression Endocrine/Immune: reports: denies history Other Conditions: reports: denies history, MRSA - PRIOR SURGERIES/PROCEDURES Surgical/Procedure History: reports: appendectomy, cholecystectomy, BTL, C- section, orthopedic (extremity) (L hip and L shoulder removed; bilateral UE and bilateral LE), joint replacement (hip, knee), back/neck (back) - IMMUNIZATION STATUS Childhood Immunizations: See Nurse Assessment Flu Vaccine: See Nurse Assessment - FAMILY HISTORY Family History: reviewed, not pertinent - SOCIAL HISTORY Smoking: denies Substance Use: none/never Physical Exam-General - PHYSICAL EXAM-ADULT Initial Vital Signs Reviewed: Yes - CONSTITUTIONAL General Appearance: alert, no apparent distress. negative: lethargic, slow to respond - EYES Eyes: PERRL/EOMI, pink conjunctivae - HEAD, EARS, NOSE, MOUTH & THROAT HENMT: moist mucous membranes - NECK Neck: non-tender, full range of motion, supple, normal inspection - RESPIRATORY Respiratory: chest non-tender, lungs clear, normal breath sounds, no pleuratic chest pain, no respiratory distress, no accessory muscle use - CARDIOVASCULAR Cardiovascular: normal peripheral pulses, regular rate, rhythm, no edema, no gallop, no JVD, no murmur - GASTROINTESTINAL (ABDOMEN) Abdominal Exam: non tender, no organomegaly, no pulsatile mass, abnormal bowel sounds (hyperactive). negative: guarding, rigid, rebound, tenderness, hernia, mass, McBurney's point tenderness, Gresham's sign, obturator sign, prominent aortic pulsations, psoas sign, Rovsing's sign - GENITOURINARY Rectal Exam: normal rectal tone, blood streaked stool (gross amount of dark bloody stool with small amounts of bright red blood). negative: hemorrhoids (no hemorrhoids appreciated) - MUSCULOSKELETAL Back Exam: normal inspection Extremity: no pedal edema, no calf tenderness, other (negative left hip and negative left shoulder). negative: deformity, erythema, inflammation, pulse deficit, pedal edema, slow capillary refill, swelling - SKIN Integumentary: normal color, normal turgor, warm/dry - NEUROLOGIC Neurologic: grossly normal - PSYCHIATRIC Psych/Mental Status: normal mood/affect, normal thought content, normal thought process, oriented x 3 Progress - PLAN OF CARE/RESULTS Progress/Plan/Lab Results: Vital Signs - 8 hr 07/16/18 14:38 Temperature 97.7 F Pulse Rate 72 Respiratory Rate 18 Blood Pressure 110/64 O2 Sat by Pulse Oximetry 98 Orders Category Date Time Status Saline Loc NOW Care 07/16/18 14:39 Active CHEST-PORTABLE [RAD] Stat Exams 07/16/18 14:41 Ordered CBC WITH ELECTRONIC DIFF [HEME] Stat Lab 07/16/18 14:00 Ordered CK PROFILE [SP CHEM] Stat Lab 07/16/18 14:00 Ordered COMPREHENSIVE METABOLIC PANEL [CHEM] Stat Lab 07/16/18 14:00 Ordered OCCULT BLOOD SCREENING [STOOL] Stat Lab 07/16/18 14:40 Uncollected TROPONIN T Stat Lab 07/16/18 14:00 Ordered TYPE & SCREEN [BBK] Stat Lab 07/16/18 14:00 Ordered URINALYSIS W/POSS RFLX CULT [URINALYSIS] Stat Lab 07/16/18 14:40 Uncollected EKG [EKG] Stat Ther 07/16/18 14:39 Ordered Laboratory Tests 07/16/18 07/16/18 07/16/18 14:10 14:10 14:10 WBC 7.61 RBC 2.80 L Hgb 8.9 L Hct 27.3 L MCV 97.5 MCH 31.8 H MCHC 32.6 L RDW Std Deviation 11.5 Plt Count 311 MPV 9.3 Immature Gran % (Auto) 0.3 Neut % (Auto) 75.5 H Lymph % (Auto) 13.1 L [place] % (Auto) 8.3 Eos % (Auto) 2.5 Baso % (Auto) 0.3 Immature Gran # (Auto) 0.02 Neut # (Auto) 5.75 Lymph # (Auto) 1.00 L [place] # (Auto) 0.63 H Eos # (Auto) 0.19 Baso # (Auto) 0.02 Sodium 137 Potassium 4.0 Chloride 101 Carbon Dioxide 23 L Anion Gap 13 BUN 14 Creatinine 0.8 Estimated GFR/1.73 m2 > 60 BUN/Creatinine Ratio 18 Glucose 107 H Calculated Osmolality 275 Calcium 9.0 Total Bilirubin 0.18 L AST 15 ALT 8 L Alkaline Phosphatase 88 Creatine Kinase 91 Troponin T 0.043 Total Protein 5.6 L Albumin 3.5 Globulin 2.1 Albumin/Globulin Ratio 1.7 Blood Type Antibody Screen 07/16/18 14:10 WBC RBC Hgb Hct MCV MCH MCHC RDW Std Deviation Plt Count MPV Immature Gran % (Auto) Neut % (Auto) Lymph % (Auto) [place] % (Auto) Eos % (Auto) Baso % (Auto) Immature Gran # (Auto) Neut # (Auto) Lymph # (Auto) [place] # (Auto) Eos # (Auto) Baso # (Auto) Sodium Potassium Chloride Carbon Dioxide Anion Gap BUN Creatinine Estimated GFR/1.73 m2 BUN/Creatinine Ratio Glucose Calculated Osmolality Calcium Total Bilirubin AST ALT Alkaline Phosphatase Creatine Kinase Troponin T Total Protein Albumin Globulin Albumin/Globulin Ratio Blood Type O POSITIVE Antibody Screen NEGATIVE Discussed results and plan of care with patient family. Both agree with plan and verbalizes understanding. Result Diagrams: 07/16/18 14:10 07/16/18 14:10 - XRAY 1 XRAY: Bilateral XRAY Study: Chest Impression: Abnormal (EXAM: CHEST-PORTABLE HISTORY: admit TECHNIQUE: Semiupright portable chest COMPARISON: 05/12/2018 FINDINGS: Poor inspiratory effort. The right hemidiaphragm is elevated. No cardiomegaly. No pulmonary edema. There is atelectasis in the right lung base. No consolidation. Large calcified mediastinal nodes. 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 IMPRESSION: Right basilar atelectasis Electronically signed by Catarino Hinds 07/16/2018 2:58 PM 07/16/18 1458 Interpreting Physician: Catarino Hinds MD Dictated Date/Time: 07/16/18 1457 cc: Bear Caceres; Jose De Jesus Mccormack MD) - CONSULTS/PCP/HOSPITALIST Notification #1 *Consult/PCP/Hospitalist*: Dr. Maher Time Discussed: 15:53 Reason/Comments: Consult Consult Disposition: other (When writing consult use Dr. Cooney since he is her doctor. Does not recommend anything different on treatment.) #2 Consult: Latisha for Dr. Figueroa Time Discussed: 17:03 Reason/Comments: Admission Consult Disposition: Admit Departure - Departure Date of Disposition Decision: 07/16/18 Time of Disposition Decision: 15:53 DIAGNOSIS: GI bleed Qualifiers: GI bleed type/associated pathology: unspecified gastrointestinal hemorrhage type Qualified Code(s): K92.2 - Gastrointestinal hemorrhage, unspecified Disposition: ADMITTED INPATIENT 09 Certified Medical Emergency: Emergent Condition: Stable Referrals and Follow-Ups: Jose De Jesus Mccormack MD [Primary Care Provider] - - Critical Care Note This patient required my direct & personal management of CC.: No Attestation - Physician/ CHRIS Attestation Patient care was provided by Advanced Practice Provider:: Yes Advanced Practice Provider:: Bear Caceres Advanced Practice Provider documentation review:: The Mid-level provider documentation, treatment plan and medical decision making was reviewed by the physician who agrees with all treatment and medical decision making by the [facility]. The physician spent face to face time with patient:: No Advanced Practice Provider documentation review:: Supervising physician onsite and consulted in the evaluation and care of this patient. The physician did not have a face to face encounter with the patient.
[2018-07-16 14:59] LABS: BASO# 0.02 X1000 (0.0-0.2); BASO% 0.3 % (0.0-0.8); EOS# 0.19 X1000 (0.0-0.7); EOS% 2.5 % (0.0-10.0); HEMATOCRIT 27.3 % (37.0-47.0); HEMOGLOBIN 8.9 g/dL (12.0-16.0); IMM GRAN# 0.02 X1000 (0.0-0.04); IMM GRAN% 0.3 % (0.0-0.5); LYMPH% 13.1 % (20.5-51.1); MCH 31.8 PG (27-31); MCHC 32.6 g/dL (33-37); MCV 97.5 FL (81-99); MONO# 0.63 X1000 (0.11-0.59); MONO% 8.3 % (1.7-9.3); MPV 9.3 FL (7.4-10.4); NEUT# 5.75 X1000 (1.4-6.5); NEUT% 75.5 % (42.2-75.2); PLT 311 X1000 (130-400); RDW 11.5 % (11.5-14.5); WBC 7.61 X1000 (4.8-10.8)
--- NOTE | 2018-07-16 15:00 | Diag Imaging Result Doc PS360 ---
EXAM: CHEST-PORTABLE HISTORY: admit TECHNIQUE: Semiupright portable chest COMPARISON: 05/12/2018 FINDINGS: Poor inspiratory effort. The right hemidiaphragm is elevated. No cardiomegaly. No pulmonary edema. There is atelectasis in the right lung base. No consolidation. Large calcified mediastinal nodes. 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 IMPRESSION: Right basilar atelectasis Electronically signed by Catarino Hinds 07/16/2018 2:58 PM
[2018-07-16 15:21] LABS: AGAP 13; ALB/GLOB RATIO 1.7; ALBUMIN 3.5 g/dL (3.5-5.0); ALKALINE PHOSPHATASE 88 U/L (32-104); BUN 14 mg/dL (8-22); CHLORIDE 101 mmol/L (98-107); CK PROFILE 91 U/L (24-173); COSMO 275; CREATININE 0.8 mg/dL (0.5-0.9); ESTIMATED GFR > 60; GLUCOSE 107 mg/dL (70-104); GOT 15 U/L (10-30); GPT 8 U/L (10-36); SODIUM 137 mmol/L (136-145); TCO2 23 mmol/L (25-35); TOTAL BILIRUBIN 0.18 mg/dL (0.20-1.00); TOTAL PROTEIN 5.6 g/dL (6.3-8.3)
--- NOTE | 2018-07-16 15:34 | EKG Report ---
Test Performed on : 07/16/2018 3:30:57 PM Test Reason : Admit Blood Pressure : / mmHG Vent. Rate : 070 BPM Atrial Rate : 070 BPM P-R Int : 168 ms QRS Dur : 088 ms QT Int : 418 ms P-R-T Axes : 030 -09 010 degrees QTc Int : 451 ms Normal sinus rhythm. Nonspecific ST and T wave abnormality Abnormal ECG When compared with ECG of 12-MAY-2018 16:17, (Unconfirmed) premature ventricular complexes. are no longer present Vent. rate has decreased BY 42 BPM Unconfirmed Result
[2018-07-16] MEDS ORDERED: PROTONIX IV ONE (15:47)
[2018-07-16] MEDS ORDERED: SODIUM CHLORIDE 0.9% INJ ONE (15:47)
--- NOTE | 2018-07-16 16:35 | ED EKG INTERP ---
This chart was entered by Selene Brown Scribe, acting as scribe for Dennis Diez MD. EKG Interpretation - EKG Time of EKG reading by physician:: 15:30 EKG Read and Signed by:: Dennis Diez EKG Interpretation (*Must complete 3 of following elements*): Abnormal Rate: 70 Rhythm: nsr [place]: normal QRS: normal [place] Interval: normal Comments: nonspecific ST and T wave abnormality Attestation - Physician/ CHRIS Attestation Patient care was provided by Advanced Practice Provider:: Yes Advanced Practice Provider documentation review:: The Mid-level provider documentation, treatment plan and medical decision making was reviewed by the physician who agrees with all treatment and medical decision making by the MLP. The physician spent face to face time with patient:: No Advanced Practice Provider documentation review:: Supervising physician onsite and consulted in the evaluation and care of this patient. The physician did not have a face to face encounter with the patient. This chart was documented by the indicated scribe, (Selene Brown Scribe) and accurately reflects the services I performed and decisions made by me, Dennis Diez MD, as attested by the provider's signature.
[2018-07-16] MEDS: PROTONIX 80 MG in NS 80 ML IV SCH (17:00)
[2018-07-16 17:50] LABS: URINE SOURCE CATH
[2018-07-16 17:55] LABS: BILIRUBIN URINE NEGATIVE (NEGATIVE); BLOOD URINE SMALL (NEGATIVE); COLOR ORANGE; GLUCOSE URINE NEGATIVE (NEGATIVE); KETONE URINE 20 mg/dL (NEGATIVE); LEUKOCYTES URINE LARGE (NEGATIVE); NITRITE URINE NEGATIVE (NEGATIVE); PH URINE 5.5; PROTEIN URINE 50 mg/dL (NEGATIVE); SP GRAVITY URINE 1.009; TURBIDITY URINE TURBID (CLEAR); UROBILINOGEN URINE NORMAL (NORMAL)
[2018-07-16] MEDS: ROCEPHIN 1 GM in NS 50 ML IV SCH (18:15)
[2018-07-16 18:17] LABS: UR EPITHELIAL CELLS <10 /HPF (<10); URINE BACTERIA NEGATIVE /HPF; URINE WBC TNTC /HPF (<10)
[2018-07-16 18:23] LABS: URINE CASTS NONE SEEN; URINE CRYSTALS NONE SEEN; URINE YEAST NONE SEEN
[2018-07-16] MEDS: NS 1,000 ML IV SCH (20:30)
[2018-07-16 21:16] LABS: HEMATOCRIT 26.7 % (37.0-47.0); HEMOGLOBIN 8.6 g/dL (12.0-16.0)
--- NOTE | 2018-07-16 21:48 | HISTORY AND PHYSICAL ---
PRIMARY CARE PHYSICIAN: Jose De Jesus Mccormack MD CHIEF COMPLAINT: "I noticed a large amount of blood in her diaper at home." HISTORY OF PRESENT ILLNESS: Ms. Griffin is an 82-year-old female with a history of rheumatoid arthritis with joint deformity, hypertension, dyslipidemia, depression, chronic constipation, and spinal stenosis. She was brought to the ER by family after the patient was noted to have a diaper full of blood. The patient's daughter provided the history because the patient was too lethargic to answer questions. The patient's family noticed blood on the patient's diaper a couple of weeks ago; however, today it was noted that there was maroon-colored blood in the patient's diaper today. The patient's appetite has not changed. The patient at a full meal today without any difficulty. There was no nausea or vomiting, or even abdominal pain prior to the episode. The patient was just diagnosed yesterday with a urinary tract infection by her primary care physician. In the ER the patient was noted to be somewhat lethargic. Hemoglobin and hematocrit were done, and those were noted to be 8.9 and 27, respectively. The patient was started on a Protonix drip and made NPO. Blood and urine cultures were also obtained and the patient was started on IV Rocephin. PAST MEDICAL HISTORY: 1. Coronary artery disease. 2. Spinal stenosis. 3. GERD. 4. Chronic constipation. 5. Hypertension. 6. Dyslipidemia. 7. Migraines. 8. Situational depression. 9. Rheumatoid arthritis. 10. Chronic pain syndrome. PAST SURGICAL HISTORY: 1. Appendectomy. 2. Cholecystectomy. 3. Left shoulder replacement. 4. Right total hip replacement. 5. Left knee replacement. 6. Right TKA. 7. . 8. Right hip revision. 9. Left hip replacement. 10. Left hip prosthesis removal. ALLERGIES: 1. Demerol. 2. Morphine. SOCIAL HISTORY: The patient lives at home with her , who is her caregiver. She is a nonsmoker and does not drink alcoholic beverages. HOME MEDICATIONS: The updated list is currently pending. FAMILY HISTORY: The patient's mother had rheumatoid arthritis. REVIEW OF SYSTEMS: Unable to obtain due to the patient's altered mental status. PHYSICAL EXAMINATION: VITAL SIGNS: Temperature 98.6 degrees, blood pressure 110/64, heart rate 72, respirations 19, O2 saturation 92% on 2 L nasal cannula. GENERAL: This is a chronically ill-appearing elderly female, lying on the stretcher in no acute distress. HEENT: Head normocephalic, atraumatic. NECK: Supple. No JVD. No lymphadenopathy. HEART: S1, S2 normal. Regular rate and rhythm. LUNGS: Equal air entry bilaterally. No wheezing. No rales. No rhonchi. ABDOMEN: Positive bowel sounds. Soft, nontender, nondistended. EXTREMITIES: The patient's extremities are contracted. No edema noted. NEUROLOGIC: The patient is lethargic but will awaken when her name is called. She is able to move all 4 extremities. LABORATORY DATA: White blood cell count 7.6, hemoglobin 8.9, hematocrit 27, platelets 311,000. Sodium 137, potassium 4, chloride 101, CO2 is 23, BUN 14, creatinine 0.8, glucose 107, calcium 9, AST 15, ALT 8, alkaline phosphatase 88. Troponin 0.04. UA: Large leukocytes, WBCs too numerous to count, urine RBCs 10-20. DIAGNOSTIC DATA: Chest x-ray shows right basilar atelectasis. ASSESSMENT AND PLAN: 1. Gastrointestinal bleed. The patient has been placed on a Protonix drip. Will keep the patient NPO. Will monitor the H/H closely and await further recommnedations from the pile driving supervisor. 2. Anemia of acute blood loss. Monitor the H/H closely. Will check iron studies. 3. Severe RA with multiple joint replacements. Aware. 4. UTI. A urine culture has been obtained. Will start IV Rocephin. 5.Chronic pain syndrome. Aware. 6.DVT prophylaxis. Will start SCDs. cc: Bhavna Harris MD [facility]
[2018-07-17 03:19] LABS: HEMATOCRIT 28.5 % (37.0-47.0); HEMOGLOBIN 9.2 g/dL (12.0-16.0)
[2018-07-17] MEDS: PROTONIX 80 MG in NS 80 ML IV SCH ×2 (03:38→11:53)
[2018-07-17] MEDS: ZOFRAN IV PRN (04:04)
[2018-07-17] MEDS: DILAUDID IV PRN (04:06)
[2018-07-17 06:55] LABS: RETIC% 2.56 % (0.8-2.1); RETIC-HE 31.9 PG (28.2-36.6)
[2018-07-17 07:07] LABS: HEMATOCRIT 27.3 % (37.0-47.0); HEMOGLOBIN 8.6 g/dL (12.0-16.0); MCH 32.3 PG (27-31); MCHC 31.5 g/dL (33-37); MCV 102.6 FL (81-99); MPV 9.6 FL (7.4-10.4); RBC 2.66 XMIL (4.2-5.4); RDW 11.8 % (11.5-14.5); WBC 8.17 X1000 (4.8-10.8)
[2018-07-17 07:46] LABS: AGAP 20; BUN 12 mg/dL (8-22); CALCIUM 8.8 mg/dL (8.8-10.2); CHLORIDE 106 mmol/L (98-107); COSMO 282; CREATININE 0.6 mg/dL (0.5-0.9); ESTIMATED GFR > 60; GLUCOSE 78 mg/dL (70-104); IRON SATURATION 18 %; SODIUM 142 mmol/L (136-145); TCO2 16 mmol/L (25-35); TIBC 181 ug/dL; TOTAL IRON 33 ug/dL (49-151); UNBOUND IRON 148 ug/dL (112-346)
[2018-07-17 09:16] LABS: HEMATOCRIT 27.5 % (37.0-47.0); HEMOGLOBIN 8.8 g/dL (12.0-16.0)
[2018-07-17] MEDS: NS 1,000 ML IV SCH (09:27)
[2018-07-17] MEDS ORDERED: AMIDATE ONE (12:55)
[2018-07-17] MEDS ORDERED: XYLOCAINE-MPF 2% ONE (12:55)
--- NOTE | 2018-07-17 13:57 | Diag Imaging Result Doc PS360 ---
EXAM: CT ABDOMEN/PELVIS W/O CONTRAST 07/16/2018 HISTORY: abdominal pain/GI bleed TECHNIQUE: This exam was performed using automated exposure control, adjustment of mA or kV according to patient size, and/or use of iterative reconstruction technique. COMMENT: The current examination is compared with the previous study of 09/09/2013. There is some beam hardening artifact in the upper abdomen and lower chest due to the patient's arms. There is some apparent fibrosis in the lower lobes which was present at the time the previous examination however there is additional platelike opacity consistent with atelectasis particularly in the right lower lobe. There are granulomata in the spleen. There has been cholecystectomy. There are number of small calyceal stones bilaterally. There is no evidence of hydronephrosis. There is a cyst in the anterior right kidney measuring 4.2 cm. This was also present previously. There is some stool throughout the colon. There is no evidence of mucosal thickening in the colon and there are numerous scattered diverticula. There is a large amount of stool present in the rectum. There is a Justin catheter in the bladder. The small bowel is not distended. There is a right hip prosthesis. There is erosion of the acetabulum on the left with what appears to be a chronic dislocation of the hip. As this is not changed since 2013. There is generalized osteopenia of the regional skeleton and severe rotoscoliosis of the lumbar spine with convexity to the right. IMPRESSION: Diverticulosis coli. Constipation. Bilateral nephrolithiasis without evidence of obstructive uropathy. Bibasilar atelectasis. Electronically signed by Moustapha Devlin 07/17/2018 1:54 PM
[2018-07-17] MEDS ORDERED: ALBUTEROL NEB INH PRN (13:58)
[2018-07-17] MEDS ORDERED: GOLYTELY PO ONE (14:00)
--- NOTE | 2018-07-17 15:36 | OPERATIVE NOTE ---
PROCEDURE DATE: 07/17/2018 PROCEDURE: Esophagogastroduodenoscopy. PREOPERATIVE DIAGNOSIS: Acute bleed anemia secondary to gastrointestinal bleed. POSTOPERATIVE DIAGNOSIS: Normal EGD. MEDICATION USED: MAC as per Anesthesia. SCOPE USED: Pentax gastroscope. HISTORY: This is an 82-year-old white female brought to the hospital with complaints of maroon stool in the diaper. She was found to be anemic. EGD was done for diagnostic as well as therapeutic purposes. PROCEDURE DETAILS: Informed consent was obtained from the patient. The procedure, risks, benefits, alternatives were explained in layman's terms. She understood. All the pertinent questions answered. The patient was brought to the endoscopy unit and was premedicated as per Anesthesia. After adequate sedation, while she was lying in left lateral position, the gastroscope was introduced into the posterior pharynx and advanced under direct vision into the esophagus. Esophagus in its entire length appeared to be normal. No esophagitis, webs, rings, varices were seen. The scope was then passed through the esophagus into the stomach. Stomach was examined on both straight and retroflexed view, which revealed normal cardia, fundus, body and antrum. I did not see any evidence of active bleeding or stigmata of recent bleed. The scope was then passed through the normal pylorus, into the duodenal bulb, and then second portion duodenum which appeared to be normal. The scope was then withdrawn. Patient tolerated the procedure well. No complications noted. Patient was then transferred to the recovery area in a stable condition. IMPRESSION: Acute bleed with normal EGD. The possibilities are either she has had lower GI bleed most likely from internal hemorrhoid or she has been found to have severe UTI in the blood which was seen in her diaper, could be hematuria as well. I have discussed the findings with the patient's daughter, her and her son-in-law and discussed the case and possibility of either to proceed with watchful wait and see how she response to antibiotic an recheck hemoglobin and hematocrit, and transfuse if necessary and if she continues to have evidence of bleed to proceed with colonoscopy as opposed to proceeding with colonoscopy at this moment. They were concerned about subjecting her through the prep of as well as the prolonged sedation and procedure. I have explained to them the options and they agreed with the first option that is to continue to observe and recheck hemoglobin and hematocrit and see how she does. In the meantime, I would continue proton pump inhibitor. We can switch her PPI to PO and follow. cc: MD MICHELLE Roe
--- NOTE | 2018-07-17 15:54 | PROGRESS NOTE ---
DATE: 07/17/2018 SUBJECTIVE: The patient is resting comfortably in bed. No acute events noted overnight. OBJECTIVE: Vital Signs: Temperature 98.6 degrees blood pressure 121/68, heart rate 98, respirations 16, O2 saturation 98% on 2 L nasal cannula. General: This is a chronically ill- appearing elderly female, lying in bed in no acute distress. Heart: S1, S2 normal. Regular rate and rhythm. Lungs: Clear to auscultation bilaterally. Abdomen: Positive bowel sounds. Soft, nontender, nondistended. Extremities: No edema, no cyanosis. Neurologic: The patient is alert and oriented x3. LABS: White blood cell count 8.1, hemoglobin 8.8, hematocrit 27 platelets 318. Sodium 142, potassium 4, chloride 106, CO2 16. BUN 12, creatinine 0.6, glucose 78. ASSESSMENT AND PLAN: 1. Gastrointestinal bleed. The patient had an endoscopy today. Will await the report. In the meantime, continue with Protonix. We will continue to monitor the hemoglobin and hematocrit closely. Further recommendations to follow from Gastroenterology. 2. Urinary tract infection. Continue with intravenous antibiotic therapy. Will await the final results of the urine culture. 3. Migraine headaches. Continue on Topamax. 4. Chronic constipation. We will restart the patient's bowel regimen. 5. Anxiety disorder. Continue on Ativan. 6. Chronic pain. Continue with as-needed pain medication. 7. Deep vein thrombosis prophylaxis. Continue with sequential compression devices. cc: Bhavna Harris MD MTDD
[2018-07-17] MEDS: TYLENOL PO PRN (16:18)
[2018-07-17] MEDS: ROCEPHIN 1 GM in NS 50 ML IV SCH (20:04)
[2018-07-17 20:22] LABS: HEMATOCRIT 28.1 % (37.0-47.0); HEMOGLOBIN 8.9 g/dL (12.0-16.0)
[2018-07-17] MEDS: NORCO-7.5 PO PRN (21:43)
[2018-07-17] MEDS: COLACE PO SCH (21:43)
[2018-07-17] MEDS: ATIVAN PO PRN (21:44)
[2018-07-17] MEDS: TOPAMAX PO SCH (21:44)
[2018-07-17] MEDS: PERIDEX MT SCH (21:44)
[2018-07-18] MEDS: PROTONIX 80 MG in NS 80 ML IV SCH ×3 (02:32→20:42)
[2018-07-18] MEDS: NS 1,000 ML IV SCH ×2 (02:32→18:32)
[2018-07-18] MEDS: DILAUDID IV PRN ×2 (02:40→20:43)
[2018-07-18 06:44] LABS: HEMATOCRIT 25.3 % (37.0-47.0); MCH 32.8 PG (27-31); MCHC 31.6 g/dL (33-37); MCV 103.7 FL (81-99); MPV 8.8 FL (7.4-10.4); RBC 2.44 XMIL (4.2-5.4); RDW 12.1 % (11.5-14.5); WBC 6.95 X1000 (4.8-10.8)
[2018-07-18 07:09] LABS: AGAP 14; BUN 10 mg/dL (8-22); CALCIUM 8.6 mg/dL (8.8-10.2); CHLORIDE 109 mmol/L (98-107); COSMO 283; CREATININE 0.7 mg/dL (0.5-0.9); ESTIMATED GFR > 60; GLUCOSE 77 mg/dL (70-104); POTASSIUM 3.5 mmol/L (3.5-5.1); SODIUM 143 mmol/L (136-145); TCO2 20 mmol/L (25-35)
[2018-07-18] MEDS: CENTRUM TABLET PO SCH (10:06)
[2018-07-18] MEDS: TOPAMAX PO SCH ×3 (10:06→20:42)
[2018-07-18] MEDS: COLACE PO SCH ×2 (10:06→20:26)
[2018-07-18] MEDS: PERIDEX MT SCH ×2 (10:07→20:26)
[2018-07-18] MEDS: TYLENOL PO PRN (11:21)
--- NOTE | 2018-07-18 11:38 | PROGRESS NOTE ---
DATE: 07/18/2018 SUBJECTIVE: The patient is resting comfortably in bed. She did have a maroon stool last night. OBJECTIVE: Vital Signs: Temperature 98.5 degrees, blood pressure 148/75, heart rate 103, respirations 16, O2 saturation 97% on room air. Intake 3.5 L, output 1.5 L. General: This is a chronically ill-appearing elderly female lying in bed in no acute distress. HEENT: Head normocephalic atraumatic. Heart: S1, S2 normal. Tachycardic. Lungs: Equal air entry bilaterally. No crackles. No rales. Abdomen: Positive bowel sounds. Soft, nontender, nondistended. Extremities: No edema, no cyanosis. Neurologic: The patient is awake and alert. LABORATORY DATA: White blood cell count 6.9, hemoglobin 8, hematocrit 25, platelets 307,000. Sodium 143, potassium 3.5, chloride 109, CO2 20, BUN 10, creatinine 0.7, glucose 77. ASSESSMENT AND PLAN: 1. Gastrointestinal bleed. The patient had a maroon-colored stool last night. The endoscopy that was done yesterday did not show an exact source of bleeding. We will continue with supportive care. Gastroenterology is following. The patient remains on Protonix. 2. Rheumatoid arthritis. Aware. 3. Anemia of acute blood loss. The patient's hemoglobin and hematocrit have dropped since yesterday. However, the patient is receiving IV fluids in addition to the GI blood loss. Will continue to monitor the hemoglobin and hematocrit closely and transfuse as necessary. 4. Migraine headaches. Continue on Topamax. 5. Chronic anxiety disorder. Continue on p.r.n. Ativan. 6. Chronic pain syndrome. Continue on p.r.n. pain medication. 7. Multiple joint replacements and revisions. Aware. 8. Deep vein thrombosis prophylaxis. Continue with sequential compression devices. cc: Bhavna Harris MD MTDD
[2018-07-18] MEDS: ZOFRAN IV PRN ×2 (13:36→18:32)
--- NOTE | 2018-07-18 17:26 | GASTROENTEROLOGY PROGRESS NOTE ---
DATE: 07/18/2018 SUBJECTIVE: The patient is lying in bed in no acute distress. She has a son-in-law at the bedside. There are reports of her having a maroon-colored stool last night. She had an EGD done yesterday with no findings of gastrointestinal bleeding. Hemoglobin and hematocrit today have a slight drop, hemoglobin 8.0, hematocrit 25.3. The patient is wearing sunglasses and reports a migraine. OBJECTIVE: Vital Signs: Temperature 97.8 degrees, pulse 110, respirations 20, blood pressure 169/84. General: The patient is awake and alert. She has sunglasses on. She complains of headache. Abdomen: Soft. Positive bowel sounds. Nontender with palpation. LABORATORY DATA: Hematology WBC 6.95, hemoglobin 8.0, hematocrit 25.3, MCV 103.7, platelet 307,000. Chemistry: Sodium 143, potassium 3.5, chloride 109, CO2 of 20, BUN 10, creatinine 0.7, glucose 77. ASSESSMENT AND PLAN: 1. Gastrointestinal bleeding with normal esophagogastroduodenoscopy. It was discussed about possibility of colonoscopy. Currently, the patient's family wants to hold off unless it is absolutely necessary. Will continue to monitor hemoglobin and hematocrit. Would recommend transfusing 2 units of packed red blood cells if her hemoglobin drops below 8. 2. Rectal bleeding. The patient had a maroon stool last night with a slight drop in her hemoglobin and hematocrit today. Will continue to monitor for further bleeding and transfuse packed red blood cells as needed. 3. Rheumatoid arthritis. 4. Migraines. 5. Other medical problems including anxiety, chronic pain syndrome, history of joint replacement. 6. Gastroenterology will continue to follow. Further plans will be made according to her progress. As noted, recommend transfusion of packed red blood cells if her hemoglobin drops below 8. If she has continued bleeding and continued drop in her hemoglobin and hematocrit, she may require colonoscopy. I have discussed this case with Dr. Peres. Dictated by NELSON Downey for Mohan Peres MD cc: NELSON Saravia MD [facility]
[2018-07-18] MEDS: ATIVAN PO PRN (20:25)
[2018-07-18] MEDS: NORCO-7.5 PO PRN (20:25)
[2018-07-18] MEDS: ROCEPHIN 1 GM in NS 50 ML IV SCH (20:26)
[2018-07-19] MEDS: PROTONIX 80 MG in NS 80 ML IV SCH ×2 (00:56→09:52)
[2018-07-19] MEDS: DILAUDID IV PRN ×3 (00:56→23:31)
[2018-07-19] MEDS: ATIVAN PO PRN ×2 (00:56→21:56)
[2018-07-19] MEDS: ZOFRAN IV PRN (00:57)
[2018-07-19 07:43] LABS: HEMATOCRIT 28.5 % (37.0-47.0); HEMOGLOBIN 9.2 g/dL (12.0-16.0); MCH 31.8 PG (27-31); MCHC 32.3 g/dL (33-37); MCV 98.6 FL (81-99); MPV 9.1 FL (7.4-10.4); RBC 2.89 XMIL (4.2-5.4); RDW 12.3 % (11.5-14.5); WBC 8.87 X1000 (4.8-10.8)
[2018-07-19 08:02] LABS: AGAP 22; BUN 6 mg/dL (8-22); CALCIUM 9.8 mg/dL (8.8-10.2); CHLORIDE 102 mmol/L (98-107); COSMO 281; CREATININE 0.8 mg/dL (0.5-0.9); ESTIMATED GFR > 60; GLUCOSE 106 mg/dL (70-104); POTASSIUM 3.8 mmol/L (3.5-5.1); SODIUM 142 mmol/L (136-145); TCO2 18 mmol/L (25-35)
[2018-07-19 09:51] LABS: INR 0.94; PROTIME 13.4 Seconds (11.0-16.0)
[2018-07-19] MEDS: NS 1,000 ML IV SCH ×2 (09:52→16:17)
[2018-07-19] MEDS ORDERED: DILAUDID IM ONE (11:22)
[2018-07-19] MEDS ORDERED: NS 250 ML ONE (13:08)
--- NOTE | 2018-07-19 14:48 | Diag Imaging Result Doc PS360 ---
EXAM: CHEST-PORTABLE - 07/19/2018 HISTORY: PICC placement TECHNIQUE: Portable chest COMPARISON: 07/16/2018 FINDINGS: There has been interval placement of PICC from the right, this tip at or near the caval atrial junction. There are no other significant interval changes identified. IMPRESSION: Tip of PICC at or near caval atrial junction. Electronically signed by Agustin Costa 07/19/2018 2:46 PM
[2018-07-19] MEDS: CENTRUM TABLET PO SCH (15:23)
[2018-07-19] MEDS: TOPAMAX PO SCH ×2 (15:24→21:57)
[2018-07-19] MEDS: PERIDEX MT SCH ×2 (15:24→21:56)
[2018-07-19] MEDS: COLACE PO SCH ×2 (15:53→22:28)
[2018-07-19 16:12] LABS: HEMATOCRIT 28.2 % (37.0-47.0); HEMOGLOBIN 9.1 g/dL (12.0-16.0)
[2018-07-19] MEDS: PROTONIX IV SCH (16:19)
[2018-07-19] MEDS: LOPRESSOR IV SCH ×2 (16:19→22:28)
--- NOTE | 2018-07-19 19:01 | PROGRESS NOTE ---
DATE: 07/19/2018 SUBJECTIVE: The patient is moaning in pain. She is refusing her oral medications at this time. OBJECTIVE: Vital Signs: Temperature 98.1, blood pressure 155/101, heart rate 129, respirations 20, O2 saturations 97% on room air, intake 1.7 L, output 1.3 L. General: This is a chronically ill-appearing elderly female, lying in bed in no acute distress. Heart: S1, S2 normal. Tachycardic. Lungs: Equal air entry bilaterally. No crackles. No rales. Abdomen: Positive bowel sounds. Soft, nontender, nondistended. Extremities: No edema, no cyanosis. Neurologic: The patient is lethargic and confused. LABS: White blood cell count 8.8, hemoglobin 9.1, hematocrit 28, platelets 391. Sodium 142, potassium 3.8, chloride 102, CO2 of 18, BUN 6, creatinine 0.8, glucose 106. Chest x-ray unchanged. There is a PICC line in place. ASSESSMENT AND PLAN: 1. Gastrointestinal bleed. The patient's hemoglobin and hematocrit are stable. No further bloody bowel movements have been noted. GI is following. Continue on IV Protonix. 2. Rheumatoid arthritis. Aware. 3. Anemia of acute blood loss. Stable. 4. Migraine headaches. Continue on Topamax. 5. Chronic anxiety disorder. Continue on Ativan as needed. 6. Chronic pain syndrome. Continue with p.r.n. Dilaudid. 7. Multiple joint replacements and revisions. Aware. 8. Deep vein thrombosis prophylaxis. Continue with sequential compression devices. cc: Bhavna Harris MD MTDD
--- NOTE | 2018-07-19 20:01 | GASTROENTEROLOGY PROGRESS NOTE ---
DATE: 07/19/2018 PRIMARY PRODUCT DEVELOPER: Mohan Peres MD REQUESTING PHYSICIAN: Bhavna Harris MD [id number] PRIMARY CARE PHYSICIAN: Jose De Jesus Mccormack MD SUBJECTIVE: The patient is resting in bed. Her , her daughter and her son-in-law are at bedside. According to the patient and family, the patient is doing better. Hematocrit is stable. She denies any nausea or vomiting. No fevers reported. OBJECTIVE: Vital signs: Temperature 98.8 degrees, pulse of 127, respiratory rate 24, blood pressure 140/101, saturating 99% on room air. Body weight of 118 pounds 14.4 ounces. BMI of 24 kg. General appearance: Moderately nourished, lying in bed in no acute distress. HEENT: Pale conjunctivae. No icterus. Neck is supple. Abdomen is soft, nontender, nondistended. No guarding. Extremities: No cyanosis or clubbing. She has been bedbound. Neurologic hilliard, she is awake and alert, answers some questions. Family at bedside. LABORATORY DATA: Hemoglobin and hematocrit are 9.2 and 28.4, white count of 8.7, platelet count of 391,000. Sodium of 142, potassium 3.8, chloride 102, bicarbonate of 89, gap 22, BUN of 6, creatinine 0.8, glucose of 106, calcium 9.8. PTT of 13.4, INR 0.94. AST 15, ALT 8, alkaline phosphatase 88, total protein is 5.6, albumin of 3.5. Iron saturation of 18%, ferritin of 704, iron level 33, B12 of more than 2000, folate of more than 40. Urinalysis positive for UTI. Her urine culture preliminary is showing no growth. Stool for occult blood was positive. IMPRESSION AND PLAN: 1. Recent gastrointestinal bleeding, could be diverticular. We will follow up her hemoglobin and hematocrit and transfuse as needed. The patient had a recent esophagogastroduodenoscopy done by Dr. Peres 2 days ago, which showed no evidence any active bleeding. 2. Rheumatoid arthritis. Aware. 3. History of chronic arthritis and bedbound state, being taken care of by the family at home. Aware. 4. Gastrointestinal prophylaxis with Protonix. 5. Anemia. She is on a multivitamin once daily. 6. Constipation. She will continue on Colace 100 mg p.o. b.i.d. 7. Pain control with intravenous Dilaudid. I have noted the patient to be tachycardic. I will discuss that with the patient's nurse so that the primary care team can address this issue. Dr. Peres will be back on Saturday to resume care. We will be available if needed over the weekend. I have discussed the above plan with the patient and family at bedside. All questions were answered. Please call us with any further questions. cc: Jonn Doty MD
[2018-07-19] MEDS: ROCEPHIN 1 GM in NS 50 ML IV SCH (21:57)
[2018-07-19] MEDS: NORCO-7.5 PO PRN (21:57)
[2018-07-20] MEDS: LOPRESSOR IV SCH (04:12)
[2018-07-20] MEDS: DILAUDID IV PRN ×5 (04:12→22:39)
[2018-07-20] MEDS: PROTONIX IV SCH ×2 (04:12→20:25)
[2018-07-20] MEDS: NS 1,000 ML IV SCH (06:22)
[2018-07-20 06:50] LABS: HEMATOCRIT 27.8 % (37.0-47.0); MCH 32.3 PG (27-31); MCHC 32.4 g/dL (33-37); MCV 99.6 FL (81-99); MPV 8.7 FL (7.4-10.4); RBC 2.79 XMIL (4.2-5.4); RDW 12.4 % (11.5-14.5); WBC 9.57 X1000 (4.8-10.8)
[2018-07-20 07:24] LABS: AGAP 20; BUN 9 mg/dL (8-22); CALCIUM 9.9 mg/dL (8.8-10.2); CHLORIDE 107 mmol/L (98-107); COSMO 293; CREATININE 0.8 mg/dL (0.5-0.9); ESTIMATED GFR > 60; GLUCOSE 100 mg/dL (70-104); POTASSIUM 2.9 mmol/L (3.5-5.1); SODIUM 148 mmol/L (136-145); TCO2 21 mmol/L (25-35)
[2018-07-20] MEDS ORDERED: POTASSIUM CHLORIDE 60 MEQ in NS 500 ML IV ONE (07:39)
[2018-07-20] MEDS: ZOFRAN IV PRN ×2 (08:20→14:59)
[2018-07-20] MEDS ORDERED: CARDIZEM IV ONE (08:34)
[2018-07-20] MEDS ORDERED: CARDIZEM 125 MG in NS 100 ML IV SCH (08:45)
[2018-07-20] MEDS: D5W 1,000 ML IV SCH (09:09)
[2018-07-20] MEDS: CARDIZEM CD PO SCH ×2 (09:10→14:53)
[2018-07-20] MEDS: ATIVAN PO PRN ×2 (09:17→15:11)
[2018-07-20] MEDS: COLACE PO SCH ×2 (09:19→20:25)
[2018-07-20] MEDS: TOPAMAX PO SCH ×2 (09:19→20:25)
[2018-07-20 11:34] LABS: FREE T4 1.41 ng/dL (0.93-1.70); TSH 0.64 uIUmL (0.27-4.20)
--- NOTE | 2018-07-20 12:20 | Diag Imaging Result Doc PS360 ---
EXAM: CT HEAD W/O CONTRAST HISTORY: encephalopathy TECHNIQUE: CT head without contrast COMPARISON: 01/11/2018 FINDINGS: No parenchymal hemorrhage. No epidural or subdural hematoma. No subarachnoid hemorrhage. There are chronic microvascular ischemic changes. No mass identified on this noncontrasted exam. No hydrocephalus. 50% of opacification of the sphenoid sinuses and right frontal sinus. IMPRESSION: No hemorrhage. Chronic microvascular ischemic changes. Sphenoid and right frontal sinusitis This exam was performed using automated exposure control, adjustment of mA or kV according to patient size, and/or use of iterative reconstruction technique. Electronically signed by Catarino Hinds 07/20/2018 12:18 PM
--- NOTE | 2018-07-20 12:22 | Diag Imaging Result Doc PS360 ---
EXAM: ABDOMEN FLAT/UPRIGHT HISTORY: abdominal pain/nausea TECHNIQUE: Two views COMPARISON: 06/27/2017 FINDINGS: Large calcified right paratracheal lymph nodes similar to the prior study. There is a right-sided PICC line. Tortuous thoracic aorta. No free air beneath the diaphragm. There are surgical clips in the mid right abdomen. Severe scoliosis. Right hip has been replaced. No bowel obstruction. No organomegaly. IMPRESSION: No acute abdominal abnormality. Electronically signed by Catarino Hinds 07/20/2018 12:19 PM
[2018-07-20] MEDS: CENTRUM TABLET PO SCH (12:47)
[2018-07-20] MEDS: WELLBUTRIN PO SCH ×2 (12:47→20:28)
[2018-07-20] MEDS: PERIDEX MT SCH ×2 (12:47→20:26)
--- NOTE | 2018-07-20 14:48 | CARDIOLOGY CONSULTATION ---
DATE: 07/20/2018 REASON FOR CONSULTATION: Cardiology was consulted for atrial fibrillation. Patient is admitted with GI bleed. Has history of hypertension, there is no known coronary artery disease. The patient went into atrial fibrillation, rapid ventricular rate, was given 10 mg of IV Cardizem, subsequently transferred to [facility]. Currently she is in sinus tachycardia. She takes Cardizem at home for hypertension. Would recommend starting the Cardizem. I discussed this with the patient's family, for multiple reasons she is bedridden. She has had significant joint issues, has had hip replacement, left shoulder replacement which were infected, subsequently the replacements were removed. As a result she is bedbound. She was noted to have large amount of blood in her diaper and brought to the hospital. GI is following. As far as her conversation is concerned she picks and chooses her words, got the history from the chart as well. REVIEW OF SYSTEMS: GI, cardiovascular: As above. Respiratory: There is no history of cough, expectoration, hemoptysis. There is no history of fevers or chills. PAST MEDICAL HISTORY: Spinal stenosis, gastroesophageal reflux disease, chronic constipation, hypertension, dyslipidemia, migraine headaches, depression, rheumatoid arthritis, chronic pain syndrome, patient is bed-bound, appendectomy, cholecystectomy, left shoulder replacement and removal of the replacement, right total hip replacement, left knee replacement, right TKA, C- section, right hip revision, left hip replacement, left hip prosthesis removed. ALLERGIES: Allergic to Demerol and morphine. HOME MEDICATIONS: Diltiazem 240, docusate, Protonix, chlorhexidine, she is on ceftriaxone here. At home she had been on also Ativan, Elavil, Neurontin, Lopressor 25 mg half a tablet twice a day, Pravachol 10 mg, Prilosec 40, Wellbutrin 150. PHYSICAL EXAMINATION: Blood pressure was 139/92. First and second heart sounds were heard. There was no S3 gallop. Respiratory: Normal air entry. There was no crepitations or rhonchi. Abdomen: Soft, nontender. There was no guarding or rigidity. Bowel sounds were heard. Central nervous system: Detailed central nervous system not performed. She was answering in monosyllables. ASSESSMENT AND PLAN: Ms Nikole Griffin is 82-year-old lady with history of hypertension, is admitted with gastrointestinal bleed. Gastroenterology is following, from a cardiac standpoint she has history of hypertension. No previous cardiac history. She also has had significant rheumatological problems including rheumatoid arthritis, surgery on her left hip, her left shoulder which were redone and removed because of infections. She went into atrial fibrillation, today she is currently in sinus rhythm. Her potassium was 2.9, I suspect atrial fibrillation is secondary to potassium of 2.9. RECOMMENDATIONS: She is in sinus rhythm. Will continue with the Cardizem. Her potassium was 2.9. We will replete potassium with 40 mEq p.o. now, check her BMP in the morning and check a magnesium level as well. Her TSH was normal. I have not made any other changes to her medication. cc: Ilan Alonso MD
--- NOTE | 2018-07-20 15:37 | ECHO REPORT ---
ORDER DATE: 07/20/2018 ECHOCARDIOGRAM: ECHOCARDIOGRAPHIC MEASUREMENTS: 1. Interventricular septum 0.8. 2. Left ventricular posterior wall 0.7. 3. Diastolic diameter 4.6. 4. Left atrium 3.4. 5. Aorta 3.5. SUMMARY: 1. Atrial fibrillation was noted. Heart rate 110 to 115 beats per minute. Mitral valve was normal. 2. Aortic valve leaflets were trileaflet. Pulmonic valve was normal. There is trace pulmonary regurgitation. Normal left ventricular cavity size. Estimated ejection fraction of 50-55%. Endocardium not well visualized in all views. 3. There is mild mitral regurgitation. Mild tricuspid regurgitation. Peak velocity across the tricuspid valve was 2.4 m/sec. Pulmonary artery systolic pressure of 33 mmHg. 4. There is diastolic dysfunction. 5. There is mild pulmonary regurgitation. 6. There is no aortic stenosis. There is trace aortic regurgitation. 7. There is no pericardial effusion or obvious intracardiac mass or thrombus seen. cc: MD Bhavna Garcia MD
--- NOTE | 2018-07-20 17:35 | PROGRESS NOTE ---
DATE: 07/20/2018 SUBJECTIVE: The patient was noted to be agitated this morning and noted to be in atrial fibrillation with RVR. OBJECTIVE: Vital Signs: Temperature 99 degrees, blood pressure 132/67, heart rate 115, respiratory rate 18, O2 saturation is 94% on room air. General: This is a chronically ill- appearing, elderly female lying in bed, in no acute distress. Heart: S1, S2 normal. Irregularly irregular rhythm. Lungs: Clear to auscultation bilaterally. No wheezing. No rales. No rhonchi. Abdomen: Positive bowel sounds. Soft, nontender, nondistended. Extremities: No edema. No cyanosis. Neurologic: The patient is confused. LABS: White blood cell count 9.5, hemoglobin 9, hematocrit 27, platelets 409,000. Sodium 148, potassium 2.9, chloride 107, CO2 21, BUN 9, creatinine 0.8, glucose 100. Abdominal x-ray shows no acute abnormality. Head CT shows chronic microvascular ischemic changes, sphenoid and right frontal sinusitis. ASSESSMENT AND PLAN: 1. Atrial fibrillation with rapid ventricular response. The patient will be started on a Cardizem drip and transferred to the CICU. We will also consult with the Digital Production Operator. 2. Gastrointestinal bleed. This appears to have stabilized. The patient's hemoglobin and hematocrit are stable. 3. Metabolic encephalopathy. The patient appears to have a sinus infection. She is currently on Rocephin. 4. Sinusitis. Continue on rocephin. 5. Chronic pain syndrome. Continue with p.r.n. Dilaudid. 6. Anemia. Stable. 7. Hypokalemia. Will replace the patient's potassium. 8. Hypernatremia. We will switch the patient to D5W. 9. Migraines. Continue on Topamax. 10. Disposition. The patient is a full code. The patient's daughter and son-in-law were updated at the bedside this morning. cc: MD MICHELLE Meyers
--- NOTE | 2018-07-20 18:20 | GASTROENTEROLOGY PROGRESS NOTE ---
DATE: 07/20/2018 SUBJECTIVE: Resting in bed. Her son-in-law was present at bedside. The patient has no active bleeding in the last 24 hours. She denies any fevers. She continues to have poor oral intake. OBJECTIVE: Vital signs: Temperature of 97.6 degrees, pulse 108, respiratory rate 20, blood pressure 172/108, saturating 93% on room air. General Appearance: Moderately nourished, lying in bed, in no acute distress. HEENT: Positive pallor. No icterus. Neck: Supple. Abdomen: Soft, nontender, nondistended. No guarding. Extremities: No cyanosis, clubbing. Neurologic: She was awake and alert and answers questions. LABS: Hemoglobin and hematocrit are 9 and 27.8, white count of 9.57, platelet count of 409,000. Sodium of 140, potassium of 2.9, chloride of 107 bicarbonate of 21, anion gap of 20, BUN of 9, creatinine of 0.8, glucose of 100, calcium 9.9. TSH 0.64. Free T4 is 1.41. Urine culture showing no growth. Head CT was done today which showed no hemorrhage, chronic microvascular ischemic changes, sphenoid and right frontal sinusitis. Abdominal x-ray showed no acute abnormality, torturous thoracic aorta, and severe scoliosis was noted. Right hip has been replaced. No bowel obstruction. No organomegaly. IMPRESSION AND PLAN: 1. Gastrointestinal bleed. Will continue to watch closely. This could be diverticular bleeding. The patient's hemoglobin and hematocrit are stable. We will continue to watch. Dr. Edwards will return tomorrow to resume care. 2. Rheumatoid arthritis. Aware. 3. Anemia. Continue to watch blood counts. Transfuse as needed. 4. Migraine headaches. She is on Topamax. 5. Chronic anxiety disorder. She is on Ativan as needed. 6. Multiple joint replacements and revisions. Aware. 7. Chronic pain syndrome. She is on intravenous narcotics in the form of Dilaudid as needed. 8. Deep venous thrombosis prophylaxis with sequential compression devices. 9. Gastrointestinal prophylaxis with proton pump inhibitors. 10. Bowel regimen. Will start with Colace 100 mg p.o. b.i.d. 11. Anemia. Will start on multivitamin once daily. 12. The above plans were discussed with the patient and family and all questions were answered. Please call us with any further questions. cc: Jonn Doty MD
[2018-07-20] MEDS: ROCEPHIN 1 GM in NS 50 ML IV SCH (20:24)
[2018-07-20] MEDS: ELAVIL PO SCH (20:25)
[2018-07-21] MEDS: D5W 1,000 ML IV SCH (02:17)
[2018-07-21] MEDS: DILAUDID IV PRN ×3 (02:18→11:30)
[2018-07-21] MEDS: ATIVAN PO PRN ×2 (02:18→09:16)
[2018-07-21 05:14] LABS: HEMATOCRIT 25.2 % (37.0-47.0); HEMOGLOBIN 8.2 g/dL (12.0-16.0); MCH 32.2 PG (27-31); MCHC 32.5 g/dL (33-37); MCV 98.8 FL (81-99); MPV 8.4 FL (7.4-10.4); RBC 2.55 XMIL (4.2-5.4); RDW 12.6 % (11.5-14.5); WBC 8.51 X1000 (4.8-10.8)
[2018-07-21 05:36] LABS: MAGNESIUM 1.4 mg/dL (1.5-2.7); PHOSPHORUS 1.7 mg/dL (2.7-4.5)
[2018-07-21] MEDS ORDERED: MAGNESIUM SULFATE 2 GM/S.W.I. 2 GM/50 ML IVPB IV ONE ×2 (05:37→07:47)
[2018-07-21 05:40] LABS: AGAP 10; BUN 9 mg/dL (8-22); CALCIUM 9.3 mg/dL (8.8-10.2); CHLORIDE 102 mmol/L (98-107); COSMO 275; CREATININE 0.8 mg/dL (0.5-0.9); ESTIMATED GFR > 60; GLUCOSE 145 mg/dL (70-104); SODIUM 137 mmol/L (136-145); TCO2 25 mmol/L (25-35)
[2018-07-21] MEDS ORDERED: POTASSIUM PHOSPHATE 40 MMOL in NS 250 ML IV ONE (05:44)
--- NOTE | 2018-07-21 07:10 | Diag Imaging Result Doc PS360 ---
EXAM: CHEST-PORTABLE HISTORY: dyspnea TECHNIQUE: Portable chest single view COMPARISON: 07/19/2018 FINDINGS: No change in the right-sided PICC line. Right hemidiaphragm is elevated. Heart is mildly prominent. No pulmonary edema. There is atelectasis or scarring in the mid right lung. No consolidation. There are large calcified lymph nodes. IMPRESSION: Stable chest Electronically signed by Catarino Hinds 07/21/2018 7:07 AM
--- NOTE | 2018-07-21 07:24 | EKG Report ---
Test Performed on : 07/21/2018 07:12:26 AM Test Reason : atrial fibrillation Blood Pressure : / mmHG Vent. Rate : 105 BPM Atrial Rate : 105 BPM P-R Int : 170 ms QRS Dur : 088 ms QT Int : 362 ms P-R-T Axes : 048 -24 014 degrees QTc Int : 478 ms Sinus tachycardia. Minimal voltage criteria for LVH, may be normal variant Nonspecific ST abnormality Abnormal ECG When compared with ECG of 20-JUL-2018 13:42, (Unconfirmed) premature ventricular complexes. are no longer present Confirmed by Willy REYES, Jay ([id number]) on 07/21/2018 9:09:05 AM
--- NOTE | 2018-07-21 07:32 | EKG Report ---
Test Performed on : 07/20/2018 06:37:39 AM Test Reason : tachycardia Blood Pressure : / mmHG Vent. Rate : 177 BPM Atrial Rate : 174 BPM P-R Int : 000 ms QRS Dur : 086 ms QT Int : 242 ms P-R-T Axes : 000 -11 198 degrees QTc Int : 415 ms Atrial fibrillation. with rapid ventricular response. Minimal voltage criteria for LVH, may be normal variant Marked ST abnormality, possible inferolateral subendocardial injury Abnormal ECG When compared with ECG of 16-JUL-2018 15:30, (Unconfirmed) Atrial fibrillation. has replaced Sinus rhythm. Vent. rate has increased BY [address] now depressed in Inferior leads ST now depressed in Lateral leads T wave inversion now evident in Lateral leads Confirmed by Willy REYES, Jay ([id number]) on 07/21/2018 9:04:59 AM
--- NOTE | 2018-07-21 07:36 | EKG Report ---
Test Performed on : 07/20/2018 1:42:50 PM Test Reason : Confirm rhythm Blood Pressure : / mmHG Vent. Rate : 120 BPM Atrial Rate : 120 BPM P-R Int : 144 ms QRS Dur : 086 ms QT Int : 320 ms P-R-T Axes : 040 033 035 degrees QTc Int : 452 ms Sinus tachycardia. with occasional premature ventricular complexes. Nonspecific ST abnormality Abnormal ECG When compared with ECG of 20-JUL-2018 06:37, (Unconfirmed) Sinus rhythm. has replaced Atrial fibrillation. ST no longer depressed in Inferior leads ST no longer depressed in Lateral leads Nonspecific T wave abnormality, improved in Inferior leads T wave inversion no longer evident in Anterolateral leads Confirmed by Willy REYES, Jay ([id number]) on 07/21/2018 9:05:56 AM
[2018-07-21] MEDS: COLACE PO SCH ×3 (09:16→21:23)
[2018-07-21] MEDS: WELLBUTRIN PO SCH ×3 (09:16→21:22)
[2018-07-21] MEDS: CENTRUM TABLET PO SCH (09:16)
[2018-07-21] MEDS: TOPAMAX PO SCH ×3 (09:16→21:24)
[2018-07-21] MEDS: PROTONIX IV SCH ×2 (09:16→20:56)
[2018-07-21] MEDS: PERIDEX MT SCH ×3 (09:17→21:23)
[2018-07-21] MEDS: CARDIZEM CD PO SCH (09:17)
--- NOTE | 2018-07-21 13:44 | PROGRESS NOTE ---
DATE: 07/21/2018 SUBJECTIVE: The patient is resting comfortably in bed. No acute events noted overnight. OBJECTIVE: Vital Signs: Temperature 98 degrees, blood pressure 97/66, heart rate 91, respirations 15, O2 saturations 93% on room air. General: This is a chronically ill-appearing elderly female, lying in bed in no acute distress. Heart: S1, S2 normal. Irregularly irregular rhythm. Lungs: Clear to auscultation bilaterally. Abdomen: Positive bowel sounds. Soft, nontender, nondistended. Extremities: No edema. No cyanosis. Neurologic: The patient is awake, but confused. LABORATORIES: White blood cell count 8.5, hemoglobin 8.2, hematocrit 25, platelets 335,000. Sodium 137, potassium 3, chloride 102. CO2 25, BUN 9, creatinine 0.8, glucose 145, magnesium 1.4, phosphorus 1.7. IMAGING: Chest x-ray shows no evidence of pulmonary edema. ASSESSMENT AND PLAN: 1. Atrial fibrillation. Management as per the municipal services manager. 2. Metabolic encephalopathy. We will consult Neurology. 3. Gastrointestinal bleed. We will continue to monitor the hemoglobin and hematocrit closely. GI is following. 4. Sinusitis. Continue with IV antibiotic therapy. 5. Chronic pain syndrome. Continue on p.r.n. Dilaudid. 6. Anemia. The hemoglobin and hematocrit have drifted down today. We will continue to monitor this closely. 7. Hypokalemia. We will replace the potassium. 8. Hypomagnesemia. We will replace the magnesium. 9. Hypophosphatemia. We will replace the phosphorus. 10. DVT prophylaxis. Continue on SCDs. cc: Bhavna Harris MD [facility]
[2018-07-21 14:50] LABS: PHOSPHORUS 5.2 mg/dL (2.7-4.5); POTASSIUM 3.4 mmol/L (3.5-5.1)
--- NOTE | 2018-07-21 15:19 | CONSULTATION ---
DATE OF CONSULTATION: 07/21/2018 NEUROLOGY CONSULT: Ms. Griffin is 82 years old, and she appears to have a global encephalopathy. History is taken from review of the hospital chart and discussion with very attentive daughter at the bedside. Ms. Griffin has had some restlessness, agitation, periods of somnolence, trouble maintaining attention. She had at least 1 radha hallucination, reportedly seeing "a man" in her room, and that was frightening to her. Son-in-law was present then. There may have been other hallucinations, but I do not have that documented. She has had some forgetfulness in recent months. There is no history of serious head injury. She has never had diagnosed stroke. There was report of possible "TIA" to explain a transient altered mental state with no focal neurologic feature while she was on a cruise 8 or 10 years ago. Otherwise, she has not had ischemic [employer] event. Noncontrast CT today shows usual scattered micro ischemic change with nothing focal or acute, no bleeding, no mass. Her exam here has been nonfocal. She presented with question of GI bleeding, and workup is in progress for that problem. There is past history of hypertension, dyslipidemia, depression, rheumatoid arthritis, and chronic pain. She has not walked in several years. She requires full attention, mostly stays in the bed, has a lot of help with dressing and all other activities. She has chronic UTI, and daughter reports mental state is often worse transiently during UTI. On my count, there are 20 medications listed. I reviewed that with daughter. She reports medicines are provided, supervised by , dispensed 1 dose at a time, and patient does not have access to medicines. The current list includes amitriptyline 25 mg at bedtime chronically, topiramate 25 mg b.i.d. added recently, bupropion 150 mg b.i.d. chronically, gabapentin 100 mg daily started after a bout of shingles, lorazepam 0.5 mg q.i.d. plus additional 1 mg as needed (daughter is not certain how often she gets the extra dose but believes it has been more than usual in recent weeks since of a family member), hydrocodone/acetaminophen 7.5/325 mg 4 doses daily. She has been afebrile. She has atrial fibrillation which may be new onset, and she has had some periods of rapid ventricular response. Daughter noted patient appeared more agitated than baseline during period of atrial fibrillation yesterday. Heart rate has been recorded mostly 100s to 130s. Systolic blood pressures have ranged 130s to 170s in the last 48 hours. On exam, she is supine, appears to be sleeping, easily waked, briefly attentive, following simple commands slowly. She followed commands requiring right/left distinction and digit distinction slowly but correctly. Speech is feeble, inconsistent, not markedly dysarthric, and there is no definite language dysfunction. Facial motility is symmetric. Tongue is midline. Extraocular movements are full. Visual dutton are full, tested grossly by confrontational finger counting. Facial motility is diminished, but symmetric. Gag is intact. Tongue is midline. I did not examine her shoulders vigorously. She moves all limbs purposefully. Tone seems symmetric in the limbs. 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 She reported symmetric ability to distinguish sharp from dull over the soles of the feet bilaterally. Plantar response is silent bilaterally. IMPRESSION: 1. Recent agitation, altered mental state, apparent visual hallucination, not certain any auditory component. Visual hallucination is typically a medication effect, and there may be multiple factors. 2. Likely baseline cognitive impairment syndrome. This may be mild cognitive impairment or it might be a major neurocognitive disorder/dementia. We might consider cholinesterase inhibitor trial later. 3. Polypharmacy. She has 6 medicines on my count which are [employer] active. Daughter believes that another medicine was stopped a month ago, but that seems unlikely related to the current issues. There may be significant cognitive impairment with topiramate. There can be significant adverse effect on cognitive function with anticholinergic effect of amitriptyline. 4. Atrial fibrillation, but no clinical evidence of cerebral of cardioembolic cerebrovascular event. I will plan EEG when practical. I do not think she is having subclinical seizure, but with so many medications, it is difficult to be certain on clinical grounds alone. I would try to reduce her medicines as possible, but not certain where to start. Topiramate was added recently and might be stopped. Amitriptyline dose is relatively low and might be stopped. Gabapentin dose is quite low and might be stopped. Thanks for asking Neurology to see Ms. Griffin. cc: MD MICHELLE Lopez III
--- NOTE | 2018-07-21 18:46 | GASTROENTEROLOGY PROGRESS NOTE ---
DATE: 07/21/2018 SUBJECTIVE: The patient was transferred to the [facility] over the weekend for onset of atrial fibrillation. The patient had an EGD last week for anemia. EGD findings were normal. Hemoglobin and hematocrit had improved some over the weekend. Today, she had a slight drop in hemoglobin and hematocrit, 8.2 and 25.2. Son-in-law was at the bedside and he reports some darker stools noted. OBJECTIVE: Vital Signs: Temperature 98.0 degrees, pulse 98, respirations 16, blood pressure 122/71. General: The patient was awake, no acute distress. Family at the bedside. Abdomen: Soft, nontender. Positive bowel sounds. LABORATORY DATA: Hematology: WBC 8.5, hemoglobin 8.2, hematocrit 25.2, MCV 98.8. Chemistry: Sodium 137, potassium 3.4, chloride 102, CO2 25, BUN 9, creatinine 0.8, glucose 145, phosphorus 5.2, magnesium 1.4, iron 33, ferritin 704, vitamin B12 greater than 2000, folate greater than 40. ASSESSMENT AND PLAN: 1. Atrial fibrillation. Following with Cardiology. 2. Metabolic encephalopathy. The patient has had Neurology consult. 3. Recent gastrointestinal bleed with anemia. Her esophagogastroduodenoscopy was normal. 4. Electrolyte imbalance. Continue replacement. PLAN: We will continue to follow. Transfuse packed red blood cells if hemoglobin drops below 8. At present time, the family does not wish to proceed with colonoscopy unless absolutely necessary. Again, will continue to follow and further plans to be made according to her progress. I have discussed this case with Dr. Peres. Dictated by NELSON Downey for Mohan Peres MD cc: NELSON Saravia MD
[2018-07-21] MEDS ORDERED: POTASSIUM CHLORIDE 40 MEQ/SWI 40 MEQ/100 ML IVPB IV ONE (20:00)
[2018-07-21] MEDS: ROCEPHIN 1 GM in NS 50 ML IV SCH (20:55)
[2018-07-21] MEDS: ELAVIL PO SCH ×2 (20:56→21:24)
[2018-07-22 06:03] LABS: MAGNESIUM 2.4 mg/dL (1.5-2.7); PHOSPHORUS 2.8 mg/dL (2.7-4.5)
[2018-07-22 06:10] LABS: AGAP 14; BUN 7 mg/dL (8-22); CALCIUM 9.3 mg/dL (8.8-10.2); CHLORIDE 101 mmol/L (98-107); COSMO 273; CREATININE 0.8 mg/dL (0.5-0.9); ESTIMATED GFR > 60; GLUCOSE 89 mg/dL (70-104); SODIUM 138 mmol/L (136-145); TCO2 23 mmol/L (25-35)
[2018-07-22] MEDS: PROTONIX IV SCH ×2 (08:18→23:41)
[2018-07-22] MEDS: DILAUDID IV PRN ×2 (08:18→14:22)
[2018-07-22] MEDS: TOPAMAX PO SCH ×2 (08:18→22:17)
[2018-07-22] MEDS: CARDIZEM CD PO SCH (08:18)
[2018-07-22] MEDS: PERIDEX MT SCH ×2 (08:18→22:17)
[2018-07-22] MEDS: COLACE PO SCH ×2 (08:18→22:17)
[2018-07-22] MEDS: CENTRUM TABLET PO SCH (08:18)
[2018-07-22] MEDS: WELLBUTRIN PO SCH ×2 (08:21→22:29)
[2018-07-22] MEDS: ATIVAN PO PRN ×2 (08:34→14:13)
[2018-07-22 08:47] LABS: HEMATOCRIT 31.6 % (37.0-47.0); HEMOGLOBIN 10.5 g/dL (12.0-16.0); MCH 32.8 PG (27-31); MCHC 33.2 g/dL (33-37); MCV 98.8 FL (81-99); MPV 8.8 FL (7.4-10.4); RBC 3.2 XMIL (4.2-5.4); RDW 12.8 % (11.5-14.5); WBC 11.73 X1000 (4.8-10.8)
--- NOTE | 2018-07-22 10:51 | PROGRESS NOTE ---
DATE: 07/22/2018 SUBJECTIVE: Ms. Griffin has not had any further definite visual hallucinations. Son-in-law is present now, and he provided first hand report to me this morning of her episode yesterday. He reports she reported seeing a man and that frightened her and the man was a stranger. There was no communication between her and the man. Specifically, there was no apparent auditory component to the hallucination. This occurred at a time when the room light was low. OBJECTIVE: This morning, she is much brighter, more alert, more attentive, and much more spontaneous. She answered simple questions. Speech is still low volume but easily understood. Language function is intact on brief testing. I did not test her cognitive function. Pulp Tester remains equal. IMPRESSION: Global encephalopathy, polypharmacy, previous hallucination, delusion, delirium. All of this seems to be improved. I do not have any new suggestion from Neurology standpoint today. Thanks for asking us to see Ms. Griffin. cc: MD MICHELLE Lopez III
--- NOTE | 2018-07-22 13:35 | GASTROENTEROLOGY PROGRESS NOTE ---
DATE: 07/22/2018 SUBJECTIVE: The patient was awake, alert. She has family at the bedside. There was report of a bright red, bloody stool on intake and output report from last night. Nurse today has not noticed any further bleeding. The patient denies abdominal pain. Her hemoglobin and hematocrit have actually increased today. Yesterday hemoglobin and hematocrit was 8.2, 25.2; today hemoglobin and hematocrit 10.5, 31.6. OBJECTIVE: Vital Signs: Temperature 97.6 degrees, pulse 96, respirations 12, blood pressure 104/70. General: Patient is awake, alert, no acute distress. Abdomen: Soft, nontender. Positive bowel sounds. LABORATORY: Hematology WBC 11.73, hemoglobin 10.5, hematocrit 31.6. MCV 98.8. Platelets 356,000. Chemistry sodium 138, potassium 4.0, chloride 101, CO2 of 23, BUN 7, creatinine 0.8, glucose 89. ASSESSMENT AND PLAN: 1. Atrial fibrillation. Cardiology is following. 2. Metabolic encephalopathy. Has been seen by Neurology. 3. Rectal bleeding. Her EGD was normal. 4. We will continue to follow. Hemoglobin and hematocrit have improved today. Bleeding possibly hemorrhoidal. Continue stool softeners. We will advance her diet to a full liquid diet. Patient was asking for ice cream. Further plans to be made according to her progress. If she continues to have rectal bleeding and/or hemoglobin and hematocrit drop, she may require a colonoscopy for further evaluation. I have discussed this case with Dr. Peres. Dictated by NELSON Downey for Mohan Peres MD cc: NELSON Saravia MD [facility]
--- NOTE | 2018-07-22 14:31 | PROGRESS NOTE ---
DATE: 07/22/2018 SUBJECTIVE: The patient resting in bed. She is poorly responsive. OBJECTIVE: Vital Signs: As follows: Temperature 97.6, pulse 96, respirations 20, blood pressure is 104/70, oxygen is 97%. HEENT: She is atraumatic, normocephalic. Cardiovascular: S1, S2. Respiratory: Has evidence of good air entry bilaterally. Abdomen: Soft, nontender. No masses felt. Extremities: No evidence of edema. Central Nervous System: The patient is poorly responsive. No obvious focal deficits noted. LABS: WBC is 11.73, hematocrit is 31.6, with a platelet count of 256,000. Sodium is 138, potassium 4.0, chloride is 101, bicarb 23, BUN is 7, creatinine 0.8. ASSESSMENT AND PLAN: 1. Metabolic encephalopathy. We will continue to follow up on patient's neurologic status. Head CT done on 07/20/2018 did not show any acute changes except for evidence of sphenoid as well as right frontal sinusitis. The patient being followed by the Neurology team. We will proceed and obtain MRI of the brain without contrast along with an EEG. We will check an ammonia level and also check thyroid function tests. We will get 2 sets of blood cultures. 2. Atrial fibrillation. Cardiology following. The patient is currently on a rate-controlling agent, specifically Cardizem 240 once a day. 3. Gastrointestinal bleed. Maintain patient on proton pump inhibitor. Monitor hemoglobin and hematocrit. Transfuse PRBCs as needed. Gastroenterology following. 4. Sphenoid as well as right frontal sinusitis. Continue antibiotics. 5. Chronic pain syndrome. Will avoid narcotic use as much as possible in light of her altered mental status. 6. Hypokalemia, resolved. 7. Hypomagnesemia, resolved. 8. Hyperphosphatemia, resolved. 9. Deep vein thrombosis prophylaxis. SCD. cc: Otis Marinelli MD
--- NOTE | 2018-07-22 15:15 | Diag Imaging Result Doc PS360 ---
EXAM: MRI BRAIN W/O CONTRAST HISTORY: ams TECHNIQUE: MRI brain without contrast COMPARISON: None. FINDINGS: Axial, sagittal, and coronal images obtained in multiple sequences. No recent infarct. There is mild atrophy and there are chronic microvascular ischemic changes no mass or midline shift. No hydrocephalus. Normal orbits. There is mucosal thickening in the right frontal and each sphenoid sinus. IMPRESSION: 1.No recent infarct although there are chronic microvascular changes 2.Atrophy 3.And mild sinusitis Electronically signed by Catarino Hinds 07/22/2018 3:13 PM
[2018-07-22 16:20] LABS: FREE T4 1.8 ng/dL (0.93-1.70); TSH 0.86 uIUmL (0.27-4.20)
[2018-07-22] MEDS: ELAVIL PO SCH (22:18)
[2018-07-22] MEDS: ROCEPHIN 1 GM in NS 50 ML IV SCH (23:40)
[2018-07-23 07:30] LABS: BASO# 0.01 X1000 (0.0-0.2); BASO% 0.2 % (0.0-0.8); EOS# 0.08 X1000 (0.0-0.7); EOS% 1.6 % (0.0-10.0); HEMATOCRIT 24.8 % (37.0-47.0); HEMOGLOBIN 8.2 g/dL (12.0-16.0); IMM GRAN# 0.06 X1000 (0.0-0.04); IMM GRAN% 1.2 % (0.0-0.5); LYMPH# 1.25 X1000 (1.2-3.4); LYMPH% 24.7 % (20.5-51.1); MCH 32.3 PG (27-31); MCHC 33.1 g/dL (33-37); MCV 97.6 FL (81-99); MONO# 0.37 X1000 (0.11-0.59); MONO% 7.3 % (1.7-9.3); MPV 8.5 FL (7.4-10.4); NEUT# 3.29 X1000 (1.4-6.5); PLT 291 X1000 (130-400); RBC 2.54 XMIL (4.2-5.4); RDW 12.4 % (11.5-14.5); WBC 5.06 X1000 (4.8-10.8)
[2018-07-23 07:54] LABS: AGAP 11; BUN 7 mg/dL (8-22); CALCIUM 8.8 mg/dL (8.8-10.2); CHLORIDE 99 mmol/L (98-107); COSMO 269; CREATININE 0.8 mg/dL (0.5-0.9); ESTIMATED GFR > 60; GLUCOSE 79 mg/dL (70-104); POTASSIUM 3.2 mmol/L (3.5-5.1); SODIUM 136 mmol/L (136-145); TCO2 26 mmol/L (25-35)
[2018-07-23] MEDS: PERIDEX MT SCH ×2 (09:20→22:08)
[2018-07-23] MEDS: WELLBUTRIN PO SCH ×2 (09:21→22:04)
[2018-07-23] MEDS: TOPAMAX PO SCH ×2 (09:21→22:05)
[2018-07-23] MEDS: PROTONIX IV SCH (09:21)
[2018-07-23] MEDS: CENTRUM TABLET PO SCH (09:21)
[2018-07-23] MEDS: CARDIZEM CD PO SCH (09:21)
[2018-07-23] MEDS: COLACE PO SCH ×2 (09:21→22:04)
--- NOTE | 2018-07-23 09:49 | EEG REPORT ---
DATE: 07/21/2018 EEG #: [id number]. COMMENT: This is a digitally recorded EEG on a patient with possible baseline cognitive impairment, recent agitated confusion, some hallucinations. FINDINGS: During waking, medium amplitude 4-7 hertz polymorphic and rhythmic theta is prominent across the hemispheres. Some slowing into the delta range at 2-3 hertz is present frontally, bilaterally, while awake. There is no sustained posterior dominant rhythm identified. Drowsing occurred briefly. Stage 2 sleep was not recorded. Photic stimulation did not significantly alter the record. Hyperventilation was not done. No definite epileptiform discharge was identified. INTERPRETATION: Abnormal EEG because of generalized slowing. CORRELATION: This is indicative of diffuse encephalopathy and is nonspecific. The absence of epileptiform discharges on a single EEG does not exclude a clinical diagnosis of seizures. cc: Teodora Granaods III, MD
--- NOTE | 2018-07-23 11:43 | PROGRESS NOTE ---
DATE: 07/23/2018 SUBJECTIVE: Ms. Griffin's is at the bedside today. He has not noted radha hallucinatory behavior. OBJECTIVE: She is in bed this morning, awake, alert, attentive, bright, much more bright and cheerful than yesterday. She answered questions appropriately. She asked several questions spontaneously. Speech is not significantly dysarthric. She remains disoriented. There is no focal deficit on brief bedside testing. Workup has included EEG which showed generalized slowing, but no epileptiform discharge. Brain MRI showed typical age-related scattered micro ischemic changes, but no evidence of recent infarction. IMPRESSION: 1. Likely baseline cognitive impairment syndrome. Cholinesterase inhibitor trial could be considered electively. This predisposes her to exacerbation of encephalopathy with any toxic or metabolic disturbance. 2. Recent agitated confusion, likely delirium with some hallucinations. This appears to be resolved. Explanation is not certain, but may be related to her medications. 3. Polypharmacy. I do not think we need further workup now. Thanks for asking Neurology to see Ms. Griffin. cc: MD MICHELLE Lopez III
--- NOTE | 2018-07-23 14:03 | GASTROENTEROLOGY PROGRESS NOTE ---
DATE: 07/23/2018 SUBJECTIVE: Patient is awake and alert. She is more alert today. Her family is at the bedside. She states she is hungry. No confusion noted. She has been moved to the 3rd floor. OBJECTIVE: Vital Signs: Temperature 98 degrees, pulse 100, respirations 26, blood pressure 137/75. General: The patient is awake and alert, in no acute distress. She is stating that she is hungry and wanting to try regular food. Laboratory: Hematology: WBC 5.06, hemoglobin 8.2, hematocrit 24.8, MCV 97.6, platelets 291,000. Chemistry: Sodium 136, potassium 3.2, chloride 99, CO2 26, BUN 7, creatinine 0.8, glucose 79. Intake and output report does not show any evidence of bloody stools today, none reported per family. ASSESSMENT AND PLAN: 1. Recent rectal bleeding. Continue to monitor. Hemoglobin and hematocrit low but stable. 2. Atrial fibrillation. Cardiology following. 3. Recent metabolic encephalopathy. Patient has been seen by neurology. 4. Esophagogastroduodenoscopy was normal with no evidence of active bleeding. We will continue to monitor hemoglobin and hematocrit. Monitor for any further active bleeding. Continue stool softeners. The patient is asking for regular food. We will advance to a healthy heart diet. Further plans to be made according to her progress. I have discussed this case with Dr. Peres. Dictated by NELSON Downey for Mohan Peres MD cc: NELSON Saravia MD
[2018-07-23] MEDS: ATIVAN PO PRN (14:24)
[2018-07-23] MEDS: DILAUDID IV PRN (15:11)
[2018-07-23] MEDS ORDERED: POTASSIUM CHLORIDE 40 MEQ/SWI 40 MEQ/100 ML IVPB IV ONE (15:43)
--- NOTE | 2018-07-23 16:12 | PROGRESS NOTE ---
DATE: 07/23/2018 SUBJECTIVE: The patient is resting in bed. Her sensorium seems to be a to be a little bit better today compared to yesterday. OBJECTIVE: Vital signs: Temperature 98 degrees, pulse is 100, respiratory rate 20, blood pressure 137/75, oxygen is 100%. HEENT: Patient is atraumatic, normocephalic. Cardiovascular: S1, S2. Respiratory system: Has evidence of good air entry bilaterally. Abdomen: Soft, nontender. No masses felt. Extremities: No evidence of edema. Central nervous system: The patient is awake. No obvious focal deficit noted. LABORATORY DATA: WBCs 5.06, hematocrit is 24.8, with a platelet count of 291,000. Sodium is 136, potassium 3.2, chloride 99, bicarb 26, BUN is 7, creatinine 0.8. ASSESSMENT AND PLAN: 1. Metabolic encephalopathy. Etiology not clear. The patient is being followed by Neurology. MRI of the brain unremarkable for any acute findings. EEG indicated encephalopathy and is nonspecific. There is no evidence of any epileptiform discharges. Ammonia level is within normal limits. With regards to thyroid function free T4 is elevated at 1.80 which is marginal. We will continue to follow clinical progression intensive neurologic status. 2. Atrial fibrillation. Continue rate controlling agent. 3. Gastrointestinal bleed. Continue proton pump inhibitor. The patient's hematocrit has dropped significantly. We will type, cross, transfuse 1 unit of packed red blood cells. We will continue to follow up on her hemoglobin and hematocrit. 4. Sphenoid as well as right frontal sinusitis, continue antibiotics. 5. Chronic pain syndrome. We will avoid narcotics as much as possible in light of her altered mental status. 6. Hypokalemia continue replacement. 7. Hypomagnesemia resolved. 8. Hypophosphatemia resolved. 9. Deep vein thrombosis prophylaxis. Sequential compression devices. cc: Otis Marinelli MD
[2018-07-23] MEDS ORDERED: NS 500 ML IV SCH (19:45)
[2018-07-23] MEDS: ELAVIL PO SCH (22:09)
[2018-07-24] MEDS: PROTONIX IV SCH ×3 (01:11→20:07)
[2018-07-24] MEDS: ROCEPHIN 1 GM in NS 50 ML IV SCH (01:13)
[2018-07-24] MEDS: COLACE PO SCH ×2 (09:17→20:07)
[2018-07-24] MEDS: WELLBUTRIN PO SCH ×2 (09:17→20:07)
[2018-07-24] MEDS: TOPAMAX PO SCH ×2 (09:17→20:07)
[2018-07-24] MEDS: CARDIZEM CD PO SCH (09:17)
[2018-07-24] MEDS: PERIDEX MT SCH ×2 (09:17→20:07)
[2018-07-24] MEDS: CENTRUM TABLET PO SCH (09:17)
[2018-07-24] MEDS: ATIVAN PO PRN ×2 (09:23→14:25)
--- NOTE | 2018-07-24 10:05 | PROGRESS NOTE ---
DATE: 07/24/2018 SUBJECTIVE: Ms. Griffin reports having a good breakfast again this morning. OBJECTIVE: She is awake, alert, and attentive. She had appropriate conversation with me. She seems even brighter today than yesterday. She was partially oriented. She identified this as a hospital in [place], [place]. She struggled to name the President. She missed the day of the month by just 1 day, but did know this is "Palm Saturday". IMPRESSION: My impression remains that she presented with a global encephalopathy and delirium with likely at least some contribution from her polypharmacy. I do not have any new suggestion right now from neurologic standpoint. After she is stable clinically, we might consider cholinesterase inhibitor trial. Thanks for asking Neurology to see Ms. Griffin. cc: Teodora Granados III, MD MTDD
[2018-07-24] MEDS: NORCO-7.5 PO PRN (12:43)
[2018-07-24] MEDS ORDERED: KLOR-CON PO ONE (17:52)
--- NOTE | 2018-07-24 18:25 | PROGRESS NOTE ---
DATE: 07/24/2018 SUBJECTIVE: Patient is doing much better today. She has made tremendous progress in terms of her mental status. The patient is able to communicate verbally. OBJECTIVE: Vital signs: Temperature 98.2 degrees, pulse 93, respiratory rate 16, blood pressure 118/60, oxygen saturation 100%. HEENT: Atraumatic, normocephalic. Cardiovascular system: S1, S2. Respiratory system has evidence of good air entry bilaterally. Abdomen is soft, nontender. No masses felt. Extremities: No evidence of edema. Central nervous system: No obvious focal deficits noted. LABORATORIES: WBC [*] hematocrit 24.8, platelet count of 291. Sodium is 136, potassium 3.2, chloride is 99, bicarbonate is 26, BUN is 7, creatinine 0.8. ASSESSMENT AND PLAN: 1. Metabolic encephalopathy. Patient's mental status has improved tremendously. 2. Atrial fibrillation. Continue rate-controlling agent. 3. Gastrointestinal bleed. No plans for GI endoscopy by the GI team. Maintain patient on proton pump inhibitor. Follow up on hematocrit. Transfuse packed red blood cells if needed. 4. Sphenoid as well as right frontal sinusitis. Continue antibiotics. 5. Chronic pain syndrome. Avoid narcotics in light of altered mental status. 6. Hypokalemia. Continue replacement. 7. Hypomagnesemia, resolved. 8. Hypophosphatemia, resolved. 9. Deep vein thrombosis prophylaxis. Sequential compression devices. cc: Otis Marinelli MD
[2018-07-24] MEDS: ELAVIL PO SCH (20:07)
[2018-07-25] MEDS: ROCEPHIN 1 GM in NS 50 ML IV SCH (00:53)
[2018-07-25 07:30] LABS: BASO# 0.02 X1000 (0.0-0.2); BASO% 0.3 % (0.0-0.8); EOS# 0.24 X1000 (0.0-0.7); EOS% 4.1 % (0.0-10.0); HEMOGLOBIN 11.1 g/dL (12.0-16.0); IMM GRAN# 0.05 X1000 (0.0-0.04); IMM GRAN% 0.9 % (0.0-0.5); LYMPH# 1.24 X1000 (1.2-3.4); LYMPH% 21.4 % (20.5-51.1); MCH 31.8 PG (27-31); MCHC 33.6 g/dL (33-37); MCV 94.6 FL (81-99); MONO# 0.56 X1000 (0.11-0.59); MONO% 9.7 % (1.7-9.3); MPV 8.8 FL (7.4-10.4); NEUT# 3.68 X1000 (1.4-6.5); NEUT% 63.6 % (42.2-75.2); PLT 267 X1000 (130-400); RBC 3.49 XMIL (4.2-5.4); RDW 14.3 % (11.5-14.5); WBC 5.79 X1000 (4.8-10.8)
[2018-07-25 08:03] LABS: AGAP 8; ALB/GLOB RATIO 1.6; ALBUMIN 3.3 g/dL (3.5-5.0); ALKALINE PHOSPHATASE 69 U/L (32-104); BUN 9 mg/dL (8-22); CALCIUM 8.9 mg/dL (8.8-10.2); CHLORIDE 104 mmol/L (98-107); COSMO 272; CREATININE 0.8 mg/dL (0.5-0.9); ESTIMATED GFR > 60; GLUCOSE 83 mg/dL (70-104); GOT 14 U/L (10-30); GPT 10 U/L (10-36); POTASSIUM 3.8 mmol/L (3.5-5.1); SODIUM 137 mmol/L (136-145); TCO2 25 mmol/L (25-35); TOTAL BILIRUBIN 0.26 mg/dL (0.20-1.00); TOTAL PROTEIN 5.4 g/dL (6.3-8.3)
--- NOTE | 2018-07-25 08:57 | PROGRESS NOTE ---
DATE: 07/25/2018 Ms. Griffin is awake, alert, attentive, bright and cheerful. She reports no headache. There is no specific tremor or significant tremulousness now. Her voice is strong. There is no meningismus. Her encephalopathy appears to be recovered to baseline. She has a baseline cognitive impairment, and cholinesterase inhibitor trial can be considered electively as an outpatient. I encouraged her to make sure she gets her medicines correctly. Thanks for asking Neurology to see Ms. Griffin. I will be glad to see her as an outpatient if needed. cc: Teodora Granados III, MD
[2018-07-25] MEDS: WELLBUTRIN PO SCH ×2 (10:10→20:10)
[2018-07-25] MEDS: CENTRUM TABLET PO SCH (10:10)
[2018-07-25] MEDS: COLACE PO SCH ×2 (10:10→20:10)
[2018-07-25] MEDS: PROTONIX IV SCH ×2 (10:10→20:12)
[2018-07-25] MEDS: CARDIZEM CD PO SCH (10:10)
[2018-07-25] MEDS: TOPAMAX PO SCH ×2 (10:10→20:11)
[2018-07-25] MEDS: PERIDEX MT SCH ×2 (10:11→20:10)
--- NOTE | 2018-07-25 13:16 | GASTROENTEROLOGY PROGRESS NOTE ---
DATE: 07/25/2018 SUBJECTIVE: The patient is lying in bed in no acute distress. She is awake and alert. She has family at the bedside. Per family report, I believe she had a dark stool today, her hemoglobin and hematocrit have improved. OBJECTIVE: Vital Signs: Temperature 97.9 degrees, pulse 108, respirations 18, blood pressure 110/73. General: The patient is awake, alert, no acute distress. LABORATORY DATA: Hematology: WBC 5.79, hemoglobin 11.1, hematocrit 33.0, MCV 94.6, platelets 267,000. Chemistry: Sodium 137, potassium 3.8, chloride 104, CO2 25, BUN 9, creatinine 0.8, glucose 83, total bilirubin 0.26, AST 14, ALT 10, alkaline phosphatase 69. ASSESSMENT AND PLAN: 1. Metabolic encephalopathy has improved. She has been seen by Neurology. 2. Gastrointestinal bleeding has stabilized. Hemoglobin and hematocrit have improved. 3. Atrial fibrillation. 4. Electrolyte imbalance has been replaced. 5. I believe there are plans for her to be transferred to [facility]. Continue proton pump inhibitor. Continue stool softener. Recommend she follow up with us as an outpatient as needed. Further plans to be made according to the patient's progress. I have discussed this case with Dr. Peres. Dictated by NELSON Downey for Mohan Peres MD cc: NELSON Saravia MD
[2018-07-25] MEDS: ATIVAN PO PRN ×2 (14:10→20:11)
[2018-07-25] MEDS: NORCO-7.5 PO PRN ×2 (14:10→20:11)
--- NOTE | 2018-07-25 14:40 | DISCHARGE SUMMARY ---
ADMISSION DATE: 07/16/2018 DISCHARGE DATE: PRINCIPAL DIAGNOSIS: Gastrointestinal bleed. SECONDARY DIAGNOSES: 1. Anemia secondary to gastrointestinal blood loss. 2. Rheumatoid arthritis. 3. Chronic pain syndrome. 4. Atrial fibrillation sphenoid as well as right frontal sinusitis. 5. Hypokalemia. 6. Hypomagnesemia. 7. Hypophosphatemia. 8. Metabolic encephalopathy. DISCHARGE MEDICATIONS: Include the followin. Metoprolol 12.5 mg p.o. every 12 hours. 2. Fish Oil with Vitamin D one 3 times a day. 3. Multivitamin 1 daily. 4. Lorazepam 0.5 mg 4 times a day. 5. Albuterol every 4 hours nebulized. 6. Omeprazole 40 mg p.o. daily. 7. Vitamin D 2000 units p.o. daily. 8. Ensure to be taken as directed. 9. Acetaminophen 650 mg every 6 hours as needed. 10. Bupropion 150 mg p.o. twice a day. 11. Diltiazem 240 mg p.o. daily. 12. Zofran 4 mg every 8 hours as needed. 13. MiraLAX 17 g p.o. daily. 14. Amitriptyline 25 mg at bedtime. 15. Gabapentin 100 mg p.o. in the morning. 16. [place] 7.5 every 6 hours as needed. 17. Topamax 25 mg p.o. twice a day. 18. Pravastatin 10 mg p.o. at bedtime. PROCEDURES DURING HOSPITAL STAY: 1. CT abdomen and pelvis 07/16/2018. 2. Esophagogastroduodenoscopy 07/17/2018. 3. Head CT 07/20/2018. 4. MRI of the brain 07/22/2018. CONSULTATIONS DONE DURING HOSPITAL STAY: 1. Mohan Peres MD, GI 2. Dr. Granados, Neurology. HOSPITAL COURSE: Ms. Nikole Griffin was admitted to the hospital because of GI bleed. The patient was started on proton pump inhibitor. Subsequently, she had upper endoscopy done which revealed normal study. The patient received. 1 unit of packed red blood cells during the course of the hospital. She developed mental status changes. Neuro imaging was unremarkable, however, there was notation of sphenoid as well as frontal sinusitis for which the patient was placed on antibiotics. Over time, her mental status improved. She was also seen by the Neurology team. At this time, she has done well. She is stable, and she can be discharged to a rehab facility. VITAL SIGNS: Today, temperature 97.9 degrees, pulse 108, respirations 18, and blood pressure 110/73. LABORATORY: WBCs 5.7, hematocrit 33 with a platelet count of 267,000. PLAN: Discharge to rehab facility. Patient will need PT and OT evaluation. Diet will be healthy heart. Activity will be as tolerated. She is expected to take discharge medications as noted above for followups. The patient will need to follow up with Dr. Granados with Neurology, Dr. Peres with GI, and Dr. Mccormack primary care physician. cc: Otis Marinelli MD
[2018-07-25 20:06] VITALS: BP 107/67
[2018-07-25] MEDS: ELAVIL PO SCH (20:11)
== END 2018-07-25 20:30 | DRG 377 ==
LOC: SUPCPDRO → ED 12:21 → SUATTDRO 19:25 → EDIPHOLD 19:25 → SURHOLD 07-17 13:57 → 4N 07-17 15:10 → 3S 07-20 13:27 → 3N 07-22 17:41
PROVIDERS: ATTEND Internal Medicine
CPT/HCPCS: 36430; 36569; 51702; 70450; 70551; 71010; 71045; 74019; 74020; 74176; 80048; 80053; 81001; 82140; 82270; 82550; 82607; 82728; 82746; 82948; 83540; 83550; 83735; 84100; 84132; 84439; 84443; 84484; 85014; 85018; 85025; 85027; 85045; 85610; 86850; 86900; 86901; 86920; 87040; 87088; 93005; 93010; 93306; 94640; 94761; 94799; 95816; 96365; 96366; 96368; 96375; 96376; 99285; A9270; C9113; J0696; J1170; J2405; J3475; J3480; J7030; J7040; J7050; J7070; P9016; S0164; XXXXX